=== PATIENT | female | born 1985 | race Caucasian/White ===

== ENCOUNTER 2022-03-04 19:40 | Emergency (ER) | payer OTHER, SELFPAY ==
[2022-03-04 19:49] VITALS: BP 130/86; PULSE 83; RESP 20; TEMP 36.9; O2SAT 99; BMI 35.4
[2022-03-04 19:58] VITALS: BP 130/86; PULSE 83; RESP 20; TEMP 36.9; O2SAT 99; BMI 35.4
--- NOTE | 2022-03-04 20:19 | CRLHL7_ITS ---
For Patients: As a result of the Cures Act, medical imaging exams and procedure reports are released immediately into your electronic medical record. You may view this report before your referring provider. If you have questions, please contact your health care provider. INDICATION: Cough. TECHNIQUE: Chest 1 view. COMPARISON: Chest radiograph 01/04/2021. FINDINGS: No focal consolidation, pleural effusion, or pneumothorax. Normal heart size and pulmonary vascularity. Stable prominence of the 1st rib costochondral junction. The bones are otherwise unremarkable. IMPRESSION: No acute cardiopulmonary findings. Dictated by Diamond Castelan MD @ 03/04/2022 8:45:47 PM (Electronically Signed)
--- NOTE | 2022-03-04 20:33 | ED_ITS ---
HPI - General Adult General Chief complaint: Cough Stated complaint: Cov+, painful cough Time Seen by Provider: 03/04/22 20:11 History of Present Illness HPI narrative: Pt is a 37 year old woman with a history of asthma who comes in with several days of cough. Her tested positive for covid 7 days ago and is recovering. No fever or chills. Cough is non-productive. No chest pain, leg swelling, change in bowel or bladder. No hemoptysis. Pt has been taking her albuterol at home with some effect. No other sick contacts or significant symptoms. Related Data Home Medications Medication Instructions Recorded Confirmed albuterol sulfate 90 mcg/actuation 2 puff inhalation Q4H PRN 03/04/22 03/04/22 aerosol inhaler (Ventolin HFA) escitalopram oxalate 20 mg tablet 20 mg PO DAILY 03/04/22 03/04/22 Allergies Allergy/AdvReac Type Severity Reaction Status Date / Time cat dander Allergy Mild Sneezing Verified 03/04/22 20:04 dog dander Allergy Mild Sneezing Verified 03/04/22 20:04 pollen extracts Allergy Mild Stuffy Nose Verified 03/04/22 20:04 Review of Systems Status of ROS: Reports: 10 or more systems reviewed and unremarkable except as noted in History and below [facility] Medical History ADD (attention deficit disorder) Arrest of dilation, delivered, current hospitalization Asthma Controlled substance agreement signed Depression with anxiety Gestational hypertension History of chicken pox History of dysmenorrhea History of ovarian cyst History of shingles SPENCER (obstructive sleep apnea) PMDD (premenstrual dysphoric disorder) Sinus problem Social phobia Surgical History History of wisdom tooth extraction S/P section Status post laparoscopic hysterectomy Social History Smoking Status: Former smoker Do you use any of these nicotine containing products: None Second hand tobacco smoke exposure: No How often do you have a drink containing alcohol: never How often do you have six or more drinks on one occasion: Never AUDIT-C Alcohol total score: 0 Non-prescribed substance use: denies use Exam Narrative: Exam Narrative: EXAM GENERAL: Patient appears comfortable and well. EYES: No scleral icterus. THYROID: no thyroid nodules or thyromegaly. LYMPH: No supraclavicular or cervical lymphadenopathy. SKIN: Visible skin seen during exam normal or with benign process only. EXT: No dependent lower extremity pedal edema. HEART: Regular rate and rhythm with no murmurs, rubs, or gallops. LUNGS: Clear to auscultation bilaterally with no crackles or wheezes. ABD: Soft, non tender, non distended. PSYCH: Good eye contact, speech is not pressured. Const: Vital Signs, click to edit/add: Vital Signs - 24 hr 03/04/22 19:58 03/04/22 19:49 Temperature 98.5 F 98.5 F Pulse Rate [Right Pulse Oximeter] 83 83 Respiratory Rate 20 20 Blood Pressure [Ri ght Upper Arm] 130/86 130/86 Pulse Oximetry 99 99 Oxygen Delivery Me thod Room Air Room Air Course Course Hospital Course: Pt seen and examined. Chest x ray negative upon my review. COVID swab collected. Vital Signs Vital signs: Initial Vital Signs Temperature 98.5 F 03/04/22 19:49 Temperature Source Temporal Artery Scan 03/04/22 19:49 Pulse Rate 83 03/04/22 19:49 Respiratory Rate 20 03/04/22 19:49 Blood Pressure 130/86 03/04/22 19:49 Blood Pressure Mean 100 03/04/22 19:49 Blood Pressure Position Sitting 03/04/22 19:49 Pulse Oximetry 99 03/04/22 19:49 Oxygen Delivery Method 03/04/22 19:49 Vital Signs Temperature 98.5 F 03/04/22 19:49 Pulse Rate 83 03/04/22 19:49 Respiratory Rate 20 03/04/22 19:49 Blood Pressure 130/86 03/04/22 19:49 Pulse Oximetry 99 03/04/22 19:49 Oxygen Delivery Method 03/04/22 19:49 Temperature 98.5 F 03/04/22 19:58 Pulse Rate 83 03/04/22 19:58 Respiratory Rate 20 03/04/22 19:58 Blood Pressure 130/86 03/04/22 19:58 Pulse Oximetry 99 03/04/22 19:58 Oxygen Delivery Method 03/04/22 19:58 Medical Decision Making MDM Narrative Medical decision making narrative: Pt is a 37 year old woman with a history of asthma and COVID exposure who presents with cough of several days duration. Pt has no other symptoms. Chest x ray negative upon my review. COVID testing pending. Vitals stable with oxygen saturation 99% on room air. We will release her and contact her with her COVID results. Differential Diagnosis Differential Diagnosis: COVID, Pneuomonia, Bronchitis, Asthma, URI Discharge Plan Discharge Clinical Impression: Cough Condition: Stable Instructions: Acute Cough (ED) Activity Level: No Restrictions Discharge Diet: Regular Prescriptions: No Action albuterol sulfate [Ventolin HFA] 90 mcg/actuation HFA aerosol inhaler 2 puff INHALATION Q4H PRN Label Comments: INHALE TWO PUFFS BY MOUTH EVERY 4 HOURS NEEDED escitalopram oxalate 20 mg tablet 20 mg PO DAILY Label Comments: TAKE 1 TABLET BY MOUTH EVERY DAY Follow Up/Referrals: Provider,Not a Local [Primary Care Provider] - Stand Alone Forms: [employer] Info Instructions
--- OUTSIDE RECORDS SUMMARY | 2022-03-04 20:35 | XMS_ITS | Encounter Summary ---
:1985 Author Organization Sells Address [address] [place] [address] Care Team Providers Name Role Phone Gricel Lara MD Unavailable No Ref-Primary, Physician Primary Care Provider [phone] Reason for Visit Reason Comments Altered Mental Status Vomiting Encounter Details Date Type Department Care Team Description 01/28/2021 Emergency [facility] Kiran Lara MD Altered mental status, unspecified alter ed mental status type; [facility] Emergency Dep t [facility] Synthetic cannabinoid abuse (H); [address] [place], [place] [address] [employer] [id number] [place] [address] [place] [address] (Wo rk) Social History Tobacco Use Types Packs/Day Years Used Date Former Smoker Cigarettes 0.5 Quit: 08/19/19 12 Smokeless Tobacco: Never Used Qu it: 05/03/2011 Alcohol Use Standard Drinks/Week Comments No 0 (1 standard drink = 0.6 oz pure alcoho l) not currently Alcohol Habits Answer Date Recorded How often do you have a drink containing alcohol? Not asked How many drinks containing alcohol do you have on a Not aske d typical day when you are drinking? How often do you have six or more drinks on one occasion? No t asked Comment: not currently 08/02/2011 Sex Assigned at Date Recorded Not on file COVID-19 Exposure Response Date Recorded In the last month, have you been in contact with No / Unsure 01/28/2021 6:55 PM CDT someone who was confirmed or suspected to have Coronavirus / COVID-19? documented as of this encounter Last Filed Vital Signs Vital Sign Reading Time Taken Comments Blood Pressure 130/95 01/28/2021 10:15 PM CDT Pulse 73 01/28/2021 10:15 PM CDT Temperature 36.3 ??C (97.4 ??F) 01/28/2021 6:56 PM CDT Respiratory Rate 26 01/28/2021 6:56 PM CDT Oxygen Saturation 98% 01/28/2021 10:30 PM CDT Inhaled Oxygen Concentration - - Weight - - Height - - Body Mass Index - - documented in this encounter Discharge Instructions Discharge InstructionsKiran Barrios MD - 01/28/2021 10:32 PM CDT I suspect your confusion may have been secondary to synthetic cannabinoid use. Unfortunately these products are not regulated, nor controlled and so challenging to interpret what may have been in the gummy that you ingested earlier tonight. Thankfully after a broad work-up performed in the emergency de partment including blood work, urinalysis, and CT imaging of the head no sinister etiologies were identified. After some fluids and medications your confusion has cleared and you are feeling back to normal which is reassuring. I like you to continue to stay hydrated if you develop a headache it is okay and safe to take Tylenol and/or ibuprofen. Follow-up with your primary care provider in 1 week for recheck. AttachmentsThe following attachments cannot be sent through Care Everywhere. Confusion (Taiwanese)documented in this encounter Medications at Time of Discharge Medication Sig Dispensed Refills Start Date End Date albuterol (PROVENTIL HFA: Inhale 2 puffs into 1 Inhaler 3 1 06/23/2011 VENTOLIN HFA) 108 (90 the lungs every 6 BASE) MCG/ACT hours as needed for inhalerIndications: shortness of breath / Intermittent asthma dyspnea. buPROPion (WELLBUTRIN XL) 0 06/07/2020 150 MG 24 hr tablet LORazepam (ATIVAN) 0.5 MG Take 0.5-1 tablets (0.25-0.5 mg) by mouth every 8 hours as needed for anxiety D 6 tablet 0 09/22/2015 tablet o not operate a vehicle after taking this medication Methylphenidate HCl 0 (RITALIN PO) sertraline (ZOLOFT) 50 MG Take 50 mg by mouth 0 1 tablet daily Sertraline HCl (ZOLOFT PO) Take by mouth daily 0 traZODone (DESYREL) 50 MG Take 50 mg by mouth 0 1 07/18/2019 tablet documented as of this encounter ED Notes Brandi Moreno RN - 01/28/2021 9:28 PM CDT Pt appears far less confused and agitated. Pt calm and cooperative. Vital signs stable, alert and oriented x4. Pt understands she was brought to the ER to determined why she was vomiting and confused earlier, and is still unsure what could have caused that. Brandi Moreno RN - 01/28/2021 6:45 PM CDT Pt arrives from home via EMS for altered mental status and vomiting. Pt is unsure why she is here and appears agitated and confused. Pt states she vomited several times today with a sudden onset and was unable to get off the floor after vomiting. Denies drug or alcohol use, although pt endorses using Delta 8 THC gummies at regular dosages, as well as various herbs and vitamins. Denies headache or abdominal pain. VSS. Drowsy and oriented to self only. Melida Umaña RN - 01/28/2021 6:31 PM CDT Bed: ED04 Expected date: 01/28/21 Expected time: 6:13 PM Means of arrival: Ambulance Comments: [id number] Kiran Barrios MD - 01/28/2021 6:31 PM CDT History Chief Complaint: Altered Mental Status and Vomiting The history is limited by the condition of the patient. Deyanira Pitt is a 35 year old female with history of Attention deficient hyperactive disorder and anxiety who presents with Altered Mental Status and Vomiting. Vomiting began today, but she does not know why. She called the ambulance. She takes over the counter herbs, to help treat her fibroids. Also, she mentions she took a 'Delta-8' THC gummy earlier this afternoon before the episode. Denies chest pain, shortness of breath, abdominal pain, dysuria, frequency, and back pain. Her period ended a few days ago and she is not concerned of possible . She no longer takes control. Review of Systems Unable to perform ROS: Mental status change Gastrointestinal: Positive for vomiting. Psychiatric/Behavioral: Altered Mental Status Allergies: Bupropion Prednisone Medications: Albuterol Bupropion Lorazepam Methylphenidate Sertraline Trazodone Citalopram Adderall Past Medical History: Attention deficient hyperactive disorder Anxiety Deliberate self cutting Depressive disorder Polycystic ovarian syndrome Asthma Tobacco abuse Obesity Social phobia Adjustment disorder with mixed anxiety and depressed mood Benign neoplasm of skin Social History: Denies alcohol use within the past 24 hours. She is . Physical Exam Patient Vitals for the past 24 hrs: BP Temp Temp src Pulse Resp SpO2 01/28/21 2230 -- -- -- -- -- 98 % 01/28/21 2200 125/83 -- -- 66 -- 99 % 01/28/21 2115 119/79 -- -- 72 -- 100 % 01/28/212099 -- -- -- -- -- 97 % 01/28/21 2045 122/68 -- -- 72 -- 100 % 01/28/212029 119/69 -- -- 68 -- 98 % 01/28/211999 -- -- -- 78 -- 99 % 01/28/21 1930 -- -- -- -- -- 96 % 01/28/21 1900 -- -- -- -- -- 98 % 01/28/21 1856 129/83 97.4 ??F (36.3 ??C) Oral 76 26 100 % Physical Exam General: Confused, disoriented, appears well-developed and well-nourished. Cooperative. In mild distress HEENT: Head: Atraumatic Ears: External ears are normal Mouth/Throat: Oropharynx is without erythema or exudate and mucous membranes are dry. Eyes: Conjunctivae normal and EOM are normal. No scleral icterus. Pupils are equal, round, and reactive to light. CV: Normal rate, regular rhythm, normal heart sounds and radial pulses are 2+ and symmetric. No murmur. Resp: Breath sounds are clear bilaterally Non-labored, no retractions or accessory muscle use GI: Abdomen is soft, no distension, no tenderness. No rebound or guarding. No CVA tenderness bilaterally MS: Normal range of motion. No edema. Normal strength in all 4 extremities. Back atraumatic. No midline cervical, thoracic, or lumbar tenderness Skin: Warm and dry. No rash or lesions noted. Neuro: Confused. Normal strength. Sensation intact in all 4 extremities. GCS: 14 Psych: Tearful. Labile mood. Denies SI/HI, but has paranoid behaviors. States has been trying to poison her. Emergency Department Course ECG: ECG taken at 1917, ECG read at 1927 Normal sinus rhythm Normal ECG No significant change when compared to EKG dated 09/22/15. Rate 76 bpm. IN interval 160 ms. QRS duration 86 ms. QT/QTc 404/454 ms. P-R-T axes 49 73 38. Imaging: CT Head w/o Contrast IMPRESSION: 1. No definite acute intracranial pathology, brain without definite CT abnormality. Reading per radiology Laboratory: CBC: WBC 7.3, HGB 11.5 (L) , PLT 221 CMP: Glucose 107 (H) Creatinine 0.87 o/w WNL HCG qualitative : Negative Lipase: 92 TSH with free T4 reflex: 1.27 Ethyl Alcohol Level:<0.01 Acetaminophen level: <2 (L) Ammonia (on ice) : <10 (L) Salicylate level: <2 UA with microscopic: ketones trace, bacteria few, mucus present o/w WNL Drug abuse screen 1 urine: Cannabinoids positive o/w all negative Emergency Department Course: Reviewed: I reviewed nursing notes, vitals, past medical history and care everywhere Assessments: 1851 I obtained history and examined the patient as noted above. 1899 I spoke on the phone with Chance, her spouse. 2129 I rechecked the patient. She looks better and wants to go home. Interventions: 1935 Zofran 4 mg IV 1936 Ativan 1 mg IV 1936 NS, 1 L, IV Disposition: The patient was discharged to home. Impression & Plan [facility] Diagnoses: None Medical Decision Making: Deyanira Pitt is a 35 year old female who presents for evaluation of altered mental status/confusion after ingesting a synthetic cannabinoid gummy earlier this evening. She looks impaired here on initial exam and during course in ED the mental status has fully improved/resolved. A broad differential was considered including infection, metabolic derangement, electrolyte abnormality (hyponatremia, etc), hypotension or shock, CVA, intracranial hemorrage or tumor, thyroid abnormality. The most likelyetiology of the altered mental state is synthetic cannabinoid gummy ingestion. Thankfully with a negative CT imaging, unremarkable blood work, and urine drug screen positive for cannabinoids low concern for other sinister etiologies as a cause of the patient's confusion and altered mentation this evening. She is fully cleared think safe for further outpatient follow-up with her primary care provider.Interventions in the emergency department included IV fluids and a single dose of Ativan. Just receiv ed antiemetics on arrival. Detailed physical exam for occult sources of infection does not demonstrate any hidden infections like perirectal abscess or cellulitis, cellulitis, open wounds, etc. I rechecked the patient at bedside before discharge and she felt improved. She denied any suicidal or homicidal thoughts. She denied depression or other concerning mental health features requiring further mental health (DEC) assessment this evening. Follow-up with her primary care provider in 1 week for recheck. After all questions answered and return precautions understood, discharged home. Diagnosis: ICD-10-CM 1. Altered mental status, unspecified altered mental status type R41.82 2. Synthetic cannabinoid abuse (H) F19.10 3. Confusion R41.0 Discharge Medications: New Prescriptions No medications on file Scribe Disclosure: Dontrell Delma Brady, am serving as a scribe at 6:58 PM on 01/28/2021 to document services personally performed by Kiran Barrios MD based on my observations and the provider's statements to me. Kiran Barrios MD 01/28/21 9310 documented in this encounter Plan of Treatment Not on filedocumented as of this encounter Procedures Procedure Name Priority Date/Time Associated Comments Diagnosis CT HEAD W/O CONTRAST STAT 01/28/2021 9:45 PM R esults for this CDT procedure are i n the results section. URINE DRUGS OF ABUSE STAT 01/28/2021 9:06 PM R esults for this SCREEN CDT procedure are i n the results section. ROUTINE UA WITH STAT 01/28/2021 9:06 PM Result s for this MICROSCOPIC REFLEX TO CDT proced ure are in CULTURE the results section. DRUG ABUSE SCREEN 1 STAT 01/28/2021 9:06 PM Re sults for this URINE (ED) CDT procedure are i n the results section. CBC WITH PLATELETS AND STAT 01/28/2021 7:34 PM Results for this DIFFERENTIAL CDT procedure are i n the results section. CBC WITH PLATELETS & STAT 01/28/2021 7:34 PM R esults for this DIFFERENTIAL CDT procedure are i n the results section. TSH WITH FREE T4 STAT 01/28/2021 7:34 PM Resul ts for this REFLEX CDT procedure are i n the results section. SALICYLATE LEVEL STAT 01/28/2021 7:34 PM Resul ts for this CDT procedure are i n the results section. LIPASE STAT 01/28/2021 7:34 PM Results f or this CDT procedure are i n the results section. HCG QUALITATIVE STAT 01/28/2021 7:34 PM Result s for this CDT procedure are i n the results section. COMPREHENSIVE STAT 01/28/2021 7:34 PM Results for this METABOLIC PANEL CDT procedure ar e in the results section. AMMONIA STAT 01/28/2021 7:34 PM Results f or this CDT procedure are i n the results section. ETHYL ALCOHOL LEVEL STAT 01/28/2021 7:34 PM Re sults for this CDT procedure are i n the results section. ACETAMINOPHEN LEVEL STAT 01/28/2021 7:34 PM Re sults for this CDT procedure are i n the results section. EKG 12-LEAD, TRACING STAT 01/28/2021 7:18 PM R esults for this ONLY CDT procedure are i n the results section. documented in this encounter Results CT Head w/o Contrast (01/28/2021 9:45 PM CDT) Anatomical Region Laterality Modality Head, SUBRAD CT NEURO, SUBRAD CT NEURO, UMP CT NEURO, Computed Tomography RAD CT Specimen (Source) Anatomical Collection Method Collection Time Re ceived Time Location / / Volume Laterality 01/28/2021 9:27 PM CDT Impressions 01/28/2021 10:01 PM CDT IMPRESSION: 1. ??No definite acute intracranial path ology, brain without definite CT abnormality. Narrative 01/28/2021 10:01 PM CDT EXAM: CT HEAD W/O CONTRAST LOCATION: [facility] [place] DATE/TIME: 01/28/2021 9:27 PM INDICATION: Mental status change, confus ion. COMPARISON: 08/01/[address] TECHNIQUE: Routine CT Head without IV co ntrast. Multiplanar reformats. Dose reduction techniques were used. FINDINGS: INTRACRANIAL CONTENTS: Study evaluation partially limited by motion and streak artifact. No definite intracranial hemorrhage, extraaxial collection, mass or mass effect. ??No convincing CT evidence of a cute infarct. Brain parenchymal attenuat ion pattern within normal limits given motion artifa ct. Normal ventricles and sulci. Cerebellar tonsils within normal limits. Possible empty sella, not well visualized. VISUALIZED ORBITS/SINUSES/MASTOIDS: No i ntraorbital abnormality. No paranasal sinus mucosal disease. No middle ear or mastoid effusion. BONES/SOFT TISSUES: No acute abnormality . Procedure Note Mohan Wynne MD - 1 EXAM: CT HEAD W/O CONTRAST LOCATION: [facility] [place] DATE/TIME: 01/28/2021 9:27 PM INDICATION: Mental status change, confus ion. COMPARISON: 08/01/[address] TECHNIQUE: Routine CT Head without IV co ntrast. Multiplanar reformats. Dose reduction techniques were used. FINDINGS: INTRACRANIAL CONTENTS: Study evaluation partially limited by motion and streak artifact. No definite intracranial hemorrhage, extraaxial collection, mass or mass effect. No convincing CT evidence of acute infarct. Brain parenchymal attenuation p attern within normal limits given motion artifa ct. Normal ventricles and sulci. Cerebellar tonsils within normal limits. Possible empty sella, not well visualized. VISUALIZED ORBITS/SINUSES/MASTOIDS: No i ntraorbital abnormality. No paranasal sinus mucosal disease. No middle ear or mastoid effusion. BONES/SOFT TISSUES: No acute abnormality . IMPRESSION: 1. No definite acute intracranial pathol ogy, brain without definite CT abnormality. Kiran Barrios MD IMG CT ORDERABLES (ABNORMAL) Drug abuse screen 1 urine (ED) (01/28/2021 9:06 PM CDT) [facility] Method Time Signature Amphetamines Screen Screen 01/28/2021 LABORATORY Urine Negative Negative 10:09 PM CDT Comment: Cutoff for a negative amphetami ne is 500 ng/mL or less. Barbiturates Urine Screen Negative Screen Negative 10:09 LABORATORY PM CDT Comment: Cutoff for a negative barbitura te is 200 ng/mL or less. Benzodiazepines Urine Screen Negative Screen 01/28/2021 1 0:09 [facility] LABORATORY Negative PM CDT Comment: Cutoff for a negative benzodiaz epine is 200 ng/mL or less. Cannabinoids Urine Screen Positive Screen Negative 10:09 LABORATORY (A) PM CDT Comment: Cutoff for a positive cannabinoid is gre ater than 50 ng/mL. This is an unconfirmed screening result to be used for medical purposes only. Cocaine Urine Screen Negative Screen Negative 01/28/2021 1 0:09 PM LABORATORY CDT Comment: Cutoff for a negative cocaine i s 300 ng/mL or less. Opiates Urine Screen Negative Screen Negative 01/28/2021 1 0:09 PM LABORATORY CDT Comment: Cutoff for a negative opiate is 300 ng/mL or less. Specimen Anatomical Collection Method Collection Time Receive d Time (Source) Location / / Volume Laterality Urine MID-STREAM URINE Non-blood 01/28/2021 9:06 PM 01/28 9:17 SPECIMEN / Unknown Collection / CDT PM CDT Unknown Kiran Barrios MD LAB - URINE ORDERABLES Performing Organization Address City/State/ZIP Code [place] [id number] Care [facility] [address] Lab (1st floor, no room number) (ABNORMAL) UA with Microscopic reflex to Culture (01/28/2021 9:06 PM CDT) [facility] Method Time Signature Color Urine Light Colorless, 01/28/2021 LABORATORY Yellow Straw, 9:30 PM CDT Light Yellow, Yellow Appearance Urine Clear Clear 01/28/2021 LABORATOR Y 9:30 PM CDT Glucose Urine Negative Negative 01/28/2021 LABORATORY mg/dL 9:30 PM CDT Bilirubin Urine Negative Negative 01/28/2021 LABORATORY 9:30 PM CDT Ketones Urine Trace (A) Negative 01/28/2021 LABORATORY mg/dL 9:30 PM CDT Specific [place] 1.011 1.003 - 01/28/2021 [facility] LABORATOR Y Urine 1.035 9:30 PM CDT Blood Urine Negative Negative 01/28/2021 LABORATORY 9:30 PM CDT pH Urine 6.5 5.0 - 7.0 01/28/2021 [facility] LABORATORY 9:30 PM CDT Protein Albumin Negative Negative 01/28/2021 LABORATORY Urine mg/dL 9:30 PM CDT Urobilinogen Normal Normal, 2.0 01/28/2021 LABORATORY Urine mg/dL 9:30 PM CDT Nitrite Urine Negative Negative 01/28/2021 LABORATORY 9:30 PM CDT Leukocyte Negative Negative 01/28/2021 LABORATORY Esterase Urine 9:30 PM CDT Bacteria Urine Few (A) None Seen 01/28/2021 LABORATORY /HPF 9:30 PM CDT Mucus Urine Present (A) None Seen 01/28/2021 LABORATORY /LPF 9:30 PM CDT RBC Urine <1 <=2 /HPF 01/28/2021 LABORATORY 9:30 PM CDT WBC Urine 1 <=5 /HPF 01/28/2021 [facility] LABORATORY 9:30 PM CDT Squamous 1 <=1 /HPF 01/28/2021 LABORATORY Epithelials 9:30 PM CDT Urine Specimen Anatomical Collection Method Collection Time Receive d Time (Source) Location / / Volume Laterality Urine MID-STREAM URINE Non-blood 01/28/2021 9:06 PM 01/28 9:16 SPECIMEN / Unknown Collection / CDT PM CDT Unknown Narrative [facility] - 01/28/2021 9:30 PM CDT Urine Culture not indicated Kiran Barrios MD LAB - URINE ORDERABLES Performing Organization Address City/State/ZIP Code [place] [address] [facility] [address] Lab (1st floor, no room number) (ABNORMAL) CBC with platelets and differential (01/28/2021 7:34 PM CDT) [facility] Method Time Signature WBC Count 7.3 4.0 - 01/28/2021 [facility] LABORATORY 11.0 7:41 PM CDT 10e3/uL RBC Count 4.10 3.80 - 01/28/2021 [facility] LABORATORY 5.20 7:41 PM CDT 10e6/uL Hemoglobin 11.5 (L) 11.7 - 01/28/2021 [facility] LABORATORY 15.7 g/dL 7:41 PM CDT Hematocrit 34.7 (L) 35.0 - 01/28/2021 [facility] LABORATORY 47.0 % 7:41 PM CDT MCV 85 78 - 100 01/28/2021 [facility]AT[facility] fL 7:41 PM CDT MCH 28.0 26.5 - 01/28/2021 [facility]ORAT[facility] 33.0 pg 7:41 PM CDT MCHC 33.1 31.5 - 01/28/2021 [facility]AT[facility] 36.5 g/dL 7:41 PM CDT RDW 14.0 10.0 - 01/28/2021 [facility]ORAT[facility] 15.0 % 7:41 PM CDT Platelet Count 221 150 - 450 01/28/2021 [facility] LABORATORY 10e3/uL 7:41 PM CDT % Neutrophils 74 % 01/28/2021 [facility] 7:41 PM CDT % Lymphocytes 17 % 01/28/2021 [facility] 7:41 PM CDT % Monocytes 7 % 01/28/2021 [facility] 7:41 PM CDT % Eosinophils 2 % 01/28/2021 [facility] 7:41 PM CDT % Basophils 0 % 01/28/2021 [facility] 7:41 PM CDT % Immature 0 % 01/28/2021 [facility] Granulocytes 7:41 PM CDT NRBCs per 100 0 <1 /100 01/28/2021 [facility] WBC 7:41 PM CDT Absolute 5.4 1.6 - 8.3 01/28/2021 [facility] Neutrophils 10e3/uL 7:41 PM CDT Absolute 1.2 0.8 - 5.3 01/28/2021 [facility] Lymphocytes 10e3/uL 7:41 PM CDT Absolute 0.5 0.0 - 1.3 01/28/2021 [facility]AT[facility] Monocytes 10e3/uL 7:41 PM CDT Absolute 0.1 0.0 - 0.7 01/28/2021 [facility] Eosinophils 10e3/uL 7:41 PM CDT Absolute 0.0 0.0 - 0.2 01/28/2021 [facility]AT[facility] Basophils 10e3/uL 7:41 PM CDT Absolute 0.0 <=0.0 01/28/2021 [facility] LABORAT[facility] Immature 10e3/uL 7:41 PM CDT Granulocytes Absolute NRBCs 0.0 10e3/uL 01/28/2021 [facility] LAB[facility]AT[facility] 7:41 PM CDT Specimen Anatomical Collection Method / Collection Time Recei vidal Time (Source) Location / Volume Laterality Blood STRUCTURE OF LEFT Venipuncture / 01/28/2021 7:34 01/28 7:37 UPPER LIMB / Unknown PM CDT PM CDT Unknown Kiran Barrios MD LAB - BLOOD ORDERABLES Performing Organization Address City/[facility]/ZIP Code [place] [address] Care [facility] [address] Lab (1st floor, no room number) Salicylate level (01/28/2021 7:34 PM CDT) athologist Signature Salicylate <2 <20 mg/dL 01/28/2021 8:02 [facility] LABORATORY PM CDT Comment: Salicylate Reference Range Therapeutic: ? <20 Anti inflammatory: 15-30 Specimen Anatomical Collection Method / Collection Time Recei vidal Time (Source) Location / Volume Laterality Blood STRUCTURE OF LEFT Venipuncture / 01/28/2021 7:34 01/28 7:37 UPPER LIMB / Unknown PM CDT PM CDT Unknown Kiran Barrios MD LAB - BLOOD ORDERABLES Performing Organization Address City/[facility]/ZIP Code [place] [address] Care [facility] [address] Lab (1st floor, no room number) (ABNORMAL) Ammonia (on ice) (01/28/2021 7:34 PM CDT) P athologist Signature Ammonia <10 (L) 10 - 50 01/28/2021 [facility] LABORATORY umol/L 8:11 PM CDT Specimen Anatomical Collection Method / Collection Time Recei vidal Time (Source) Location / Volume Laterality Blood STRUCTURE OF LEFT Venipuncture / 01/28/2021 7:34 01/28 7:37 UPPER LIMB / Unknown PM CDT PM CDT Unknown Kiran Barrios MD LAB - BLOOD ORDERABLES Performing Organization Address City/[facility]/[place] [address] Care Lab [address] Lab (1st floor, no room number) (ABNORMAL) Acetaminophen level (01/28/2021 7:34 PM CDT) athologist Signature Acetaminophen <2 (L) 10 - 30 01/28/2021 [facility] LABORATORY mg/L 8:27 PM CDT Comment: Therapeutic range: 10-30 mg/L Specimen Anatomical Collection Method / Collection Time Recei vidal Time (Source) Location / Volume Laterality Blood STRUCTURE OF LEFT Venipuncture / 01/28/2021 7:34 01/28 7:37 UPPER LIMB / Unknown PM CDT PM CDT Unknown Kiran Barrios MD LAB - BLOOD ORDERABLES Performing Organization Address City/[facility]/[place] [address] Care Lab [address] Lab (1st floor, no room number) Ethyl Alcohol Level (01/28/2021 7:34 PM CDT) athologist Signature Alcohol ethyl <0.01 <=0.01 g/dL 01/28/2021 [facility] LABORATORY 8:01 PM CDT Specimen Anatomical Collection Method / Collection Time Recei vidal Time (Source) Location / Volume Laterality Blood STRUCTURE OF LEFT Venipuncture / 01/28/2021 7:34 01/28 7:37 UPPER LIMB / Unknown PM CDT PM CDT Unknown Kiran Barrios MD LAB - BLOOD ORDERABLES Performing Organization Address City/[facility]/[place] [address] Care Lab [address] Lab (1st floor, no room number) TSH with free T4 reflex (01/28/2021 7:34 PM CDT) P athologist Signature TSH 1.27 0.40 - 4.00 01/28/2021 [facility] LAB[facility]ATORY mU/L 8:09 PM CDT Specimen Anatomical Collection Method / Collection Time Recei vidal Time (Source) Location / Volume Laterality Blood STRUCTURE OF LEFT Venipuncture / 01/28/2021 7:34 01/28 7:37 UPPER LIMB / Unknown PM CDT PM CDT Unknown Kiran Barrios MD LAB - BLOOD ORDERABLES Performing Organization Address City/State/ZIP Code [place] [address] Care [facility] [address] Lab (1st floor, no room number) Lipase (01/28/2021 7:34 PM CDT) athologist Signature Lipase 92 73 - 393 U/L 01/28/2021 [facility] LABORATORY 8:01 PM CDT Specimen Anatomical Collection Method / Collection Time Recei vidal Time (Source) Location / Volume Laterality Blood STRUCTURE OF LEFT Venipuncture / 01/28/2021 7:34 01/28 7:37 UPPER LIMB / Unknown PM CDT PM CDT Unknown Kiran Barrios MD LAB - BLOOD ORDERABLES Performing Organization Address City/State/ZIP Code [place] [address] Care [facility] [address] Lab (1st floor, no room number) (ABNORMAL) Comprehensive metabolic panel (01/28/2021 7:34 PM CDT) [facility] gist Method Time Signature Sodium 138 133 - 144 01/28/2021 [facility] mmol/L 8:01 PM CDT Potassium 3.6 3.4 - 5.3 01/28/2021 [facility] mmol/L 8:01 PM CDT Chloride 106 94 - 109 01/28/2021 [facility] mmol/L 8:01 PM CDT Carbon Dioxide 27 20 - 32 01/28/2021 [facility] (CO2) mmol/L 8:01 PM CDT Anion Gap 5 3 - 14 01/28/2021 [facility] mmol/L 8:01 PM CDT Urea Nitrogen 16 7 - 30 01/28/2021 LABORATORY mg/dL 8:01 PM CDT Creatinine 0.87 0.52 - 01/28/2021 LABORATORY 1.04 mg/dL 8:01 PM CDT Calcium 8.7 8.5 - 10.1 01/28/2021 LABORATORY mg/dL 8:01 PM CDT Glucose 107 (H) 70 - 99 01/28/2021 LABORATORY mg/dL 8:01 PM CDT Alkaline 62 40 - 150 01/28/2021 LABORATORY Phosphatase U/L 8:01 PM CDT AST 24 0 - 45 U/L 01/28/2021 LABORATORY 8:01 PM CDT ALT 24 0 - 50 U/L 01/28/2021 LABORATORY 8:01 PM CDT Protein Total 7.9 6.8 - 8.8 01/28/2021 LABORATORY g/dL 8:01 PM CDT Albumin 3.9 3.4 - 5.0 01/28/2021 LABORATORY g/dL 8:01 PM CDT Bilirubin Total 0.4 0.2 - 1.3 01/28/2021 LABORATORY mg/dL 8:01 PM CDT GFR Estimate 85 >60 01/28/2021 LABORATORY mL/min/1.7 8:01 PM CDT 3m2 Comment: As of December 06, 2020, eGFR is ca lculated by the CKD-EPI creatinine equation, without race adjustment. eGFR can be inf luenced by muscle mass, exercise, and diet. The reported eGFR is an estimation only and is only applicable if the renal function is stable. Specimen Anatomical Collection Method / Collection Time Recei vidal Time (Source) Location / Volume Laterality Blood STRUCTURE OF LEFT Venipuncture / 01/28/2021 7:34 01/28 7:37 UPPER LIMB / Unknown PM CDT PM CDT Unknown Kiran Barrios MD LAB - BLOOD ORDERABLES Performing Organization Address City/State/ZIP Code [place] [id number] Care Lab [address] Lab (1st floor, no room number) HCG QUALitative (blood) (01/28/2021 7:34 PM CDT) Patholo gist Method Time Signature hCG Serum Negative Negative NIURKA 01/28/2021 [facility] Qualitative 8:00 PM CDT Comment: This test is for screening purp oses. Results should be interpreted along with the clinical picture. Confirmation testing is available if warranted by ordering [id number], HCG Quantitative . Specimen Anatomical Collection Method / Collection Time Recei vidal Time (Source) Location / Volume Laterality Blood STRUCTURE OF LEFT Venipuncture / 01/28/2021 7:34 01/28 7:37 UPPER LIMB / Unknown PM CDT PM CDT Unknown Kiran Barrios MD LAB - BLOOD ORDERABLES Performing Organization Address City/State/ZIP Code [place] [address] Care [facility] [address] Lab (1st floor, no room number) EKG 12-lead, tracing only (01/28/2021 7:18 PM CDT) [facility] Method Time Signature Systolic Blood mmHg RADIOLOGY Pressure RESULTS Diastolic Blood mmHg RADIOLOGY Pressure RESULTS Ventricular Rate 76 BPM RADIOLOGY RESULTS Atrial Rate 76 BPM RADIOLOGY RESULTS IN Interval 160 ms RADIOLOGY RESULTS QRS Duration 86 ms RADIOLOGY RESULTS QT 404 ms RADIOLOGY RESULTS QTc 454 ms RADIOLOGY RESULTS P [place] 49 degrees RADIOLOGY RESULTS R AXIS 73 degrees RADIOLOGY RESULTS T [place] 38 degrees RADIOLOGY RESULTS Interpretation Sinus rhythm RADIOLOGY ECG Normal ECG RESULTS No previous ECGs available Confirmed by - EMERGENCY NORA Lakhani, PHYSICIAN ([id number]), editorial manager BRADLEY REYNOLDS ([id number]) on 01/29/2021 6:55:57 AM Specimen Anatomical Collection Method Collection Time Receive d Time (Source) Location / / Volume Laterality 01/28/2021 7:18 PM 6:55 CDT AM CDT Kiran Barrios MD ECG ORDERABLES Performing Organization Address City/State/ZIP Code Phon e Number RADIOLOGY RESULTS documented in this encounter Visit Diagnoses Diagnosis Altered mental status, unspecified alter ed mental status type Synthetic cannabinoid abuse (H) Confusion Unspecified psychosis documented in this encounter Administered Medications Inactive Administered Medications - up to 3 most recent administrations Medication Order MAR Action Action Date Dose Rate Site 0.9% sodium chloride BOLUS New Bag 01/28/2021 7:37 PM CDT 1,000 mLs 2000 mL/hr Intravenous, 1,000 mL, ONCE, at 2,000 mL/hr, Administer over 30 Minutes, On [place] 9/2/21 at 1905, For 1 dose LORazepam (ATIVAN) injection 1 mg Given 01/28/2021 7:37 PM CDT 1 mg 1 mg, Intravenous, EVERY 30 MIN PRN, anxiety, agitation, aggression, Starting on [place] 01/28/21 at 1856, For 2 doses, This drug may cause significant respiratory depression. Monitor respiratory status and vital signs carefully for 1 hour after each dose. ondansetron (ZOFRAN) injection 4 mg Given 01/28/2021 7:36 PM CDT 4 mg 4 mg, Intravenous, ONCE, Administer over 2-5 Minutes, On [place] 01/28/21 at 1905, For 1 dose, Irritant. For ordered IV doses 0.1-4 mg, give IV Push undiluted over 2-5 minutes. documented in this encounter Active and Recently Administered Medications Times are shown in CDT. Scheduled Medication Order 01/26/2021 01/27/2021 01/28/2021 0.9% sodium chloride BOLUS (COMPLETED) 1936 (New Bag - Provider: Brandi Moreno RN)2103 (Stopped - Provider: Brandi Moreno, RN) Intravenous, 1,000 mL, ONCE, at 2,000 mL /hr, Administer over 30 Minutes, On [place] 01/28/21 at 1905, For 1 dose ondansetron (ZOFRAN) injection 4 mg (COMPLETED) 1935 (Given - Provider: Brandi Moreno, ROXANA) 4 mg, Intravenous, ONCE, Administer over 2-5 Minutes, On [place] 01/28/21 at 1905, For 1 dose, Irritant. For ordered IV doses 0.1-4 mg, give IV Push undiluted over 2-5 minutes. PRN Medication Order 01/26/2021 01/27/2021 01/28/2021 LORazepam (ATIVAN) injection 1 mg 1936 (Given - Provider: Brandi Moreno, ROXANA) 1 mg, Intravenous, EVERY 30 MIN PRN, anx iety, agitation, aggression, Starting on [place] 01/28/21 at 1856, For 2 doses, This drug may cause significant respiratory depression. Monitor respiratory status and vital signs carefully for 1 hour after each dose. documented in this encounter Care Teams Blow Mold Technician Relationship Specialty Start Date End Date No Ref-Primary, Physician PCP - General 06/07/20 Gricel Lara MD Family Practice 09/22/15 [facility] [address] [place] [address] documented as of this encounter
--- OUTSIDE RECORDS SUMMARY | 2022-03-04 20:35 | XMS_ITS | Encounter Summary ---
:1985 Author Organization [place] Address [address] [place] [address]. [place] [address] Care Team Providers Name Role Phone Kiran Cornelius MD Primary Care Provider [phone] Kiran Cornelius MD Unavailable Reason for Visit Reason Comments Recheck Medication Would like to d/c Virgilio Encounter Details Date Type Department Care Team Description 05/07/2012 Office Visit [facility] Kiran Cornelius ADHD (att ention deficit Clinic Mechelle Landin MD hyperactivity disorder) [place] [address] [facility] [address], [address] [place] [phone] Social History Tobacco Use Types Packs/Day Years Used Date Former Smoker Quit: 08/19/19 12 Smokeless Tobacco: Former User Q uit: 05/03/2011 Alcohol Use Standard Drinks/Week Comments No [...] Assigned at Date Recorded Not on file documented as of this encounter Last Filed Vital Signs Vital Sign Reading Time Taken Comments Blood Pressure 124/84 05/07/2012 7:29 AM ACREAGE REPORTER Pulse 84 05/07/2012 7:29 AM ACREAGE REPORTER Temperature 36.3 ??C (97.4 ??F) 05/07/2012 7:29 AM ACREAGE REPORTER Respiratory Rate - - Oxygen Saturation 97% 05/07/2012 7:29 AM ACREAGE REPORTER Inhaled Oxygen Concentration - - Weight 109.8 kg (242 lb) 05/07/2012 7:29 AM ACREAGE REPORTER Height 175.3 cm (5' 9) 05/07/2012 7:29 AM ACREAGE REPORTER Body Mass Index 35.74 05/07/2012 7:29 AM ACREAGE REPORTER documented in this encounter Progress Notes Kiran Cornelius MD - 05/07/2012 7:54 AM CST HPI Jaquan seems to be working, but having lots of abdominal pains, and noted last period was crampier than normal. Feels thinking is more focused, less clutter in my head. For stimulants has been on adderall, both long acting and short acting. Find that she can tolerate stims for a while, but fairlyquickly side effects become problematic. Concerned about logistics and finances with counseling. Review of Systems Constitutional: Negative. Psychiatric/Behavioral: Negative for depression and substance abuse. The patient is nervous/anxious. Physical Exam Vitals reviewed. Constitutional: She is oriented to person, place, and time and well-developed, well-nourished, and in no distress. Neurological: She is alert and oriented to person, place, and time. Psychiatric: Mood and affect normal. ADHD (attention deficit hyperactivity disorder) (primary encounter diagnosis) Comment: will give trial - may need PA. Advised to take break on weekends or when not needed/ Plan: methylphenidate (CONCERTA) 18 MG CR tablet Greater than 50% of this 15 minute visit spent in counseling and coordination of care. Topics discussed included: med adjustment, follow-up planning RTC in 2w Kiran Cornelius MD AGE REPORTER documented in this encounter Nursing Notes 05/07/2012 7:15 AM CST >> LIVE PAREKH Mon May 07, 2012 7:31 AM Patient presents with: Recheck Medication - Would like to d/c Virgilio Initial BP 124/84 Pulse 84 Temp(Src) 97.4 ??F (36.3 ??C) (Oral) Ht 5' 9 (1.753 m) Wt 242 lb(109.77 kg) BMI 35.74 kg/m2 SpO2 97% LMP 04/02/2012 Estimated Body mass index is 35.74 kg/(m^2) as calculated from the following: Height as of this encounter: 5' 9(1.753 m). Weight as of this encounter: 242 lb(109.77 kg).. BP completed using cuff size: alysha Parekh RN documented in this encounter Plan of Treatment Not on filedocumented as of this encounter Visit Diagnoses Diagnosis ADHD (attention deficit hyperactivity di sorder) - Primary Attention deficit disorder with hyperact ivity documented in this encounter Care Teams Loaders Relationship Specialty Start Date End Date Kiran Cornelius MD PCP - General Family Practice 10/03/11 09/21/15 Kiran Cornelius MD Family Practice 10/03/11 09/21/15 documented as of this encounter
--- OUTSIDE RECORDS SUMMARY | 2022-03-04 20:35 | XMS_ITS | Encounter Summary ---
:1985 Author Organization [place] Address [address] [place] [address] Care Team Providers Name Role Phone Kiran Cornelius MD Primary Care Provider [phone] Kiran Cornelius MD Unavailable Reason for Visit Reason Onset Date Comments Medication Change 04/18/2012 pt stopped cymbalta & tenex Encounter Details Date Type Department Care Team Description [facility] n Change (pt Clinic Mechelle Landin MD stopped cymbalta & [address] [facility], [address] [place] [address].. [address] [place] [address] [place], [place] [phone] (Wo rk) [address] [phone] Social History Tobacco Use Types Packs/Day Years [...] on file documented as of this encounter Miscellaneous Notes Telephone Encounter - Stefani Garza - 04/18/2012 3:27 PM CST Discontinued tenex and cymbalta, see below. OL LABORATORY TECHNICIAN Telephone Encounter - Stefani Garza - 04/18/2012 3:26 PM SCHOOL LABORATORY TECHNICIAN Message from [facility]: Original authorizing provider: Kiran Cornelius MD, MD Deyanira Pitt would like a refill of the following medications: guanFACINE (TENEX) 1 MG tablet [Kiran Cornelius MD, ] DULoxetine (CYMBALTA) 20 MG capsule [Kiran Cornelius MD, ] Preferred pharmacy: [id number] [place], [place] Comment: I am no longer taking any of these medications at this time.Thank you Medication renewals requested in this message routed to other providers: citalopram (CELEXA) 20 MG tablet [Kathryn Colbert MD] OL LABORATORY TECHNICIAN documented in this encounter Plan of Treatment Not on filedocumented as of this encounter Visit Diagnoses Diagnosis ADHD (attention deficit hyperactivity di sorder) - Primary Attention deficit disorder with hyperact ivity OZZIE (generalised anxiety disorder) Generalized anxiety disorder documented in this encounter Care Teams Stock Hanger Relationship Specialty Start Date End Date Kiran Cornelius MD PCP - General Family Practice 10/03/11 09/21/15 Kiran Cornelius MD Family Practice 10/03/11 09/21/15 documented as of this encounter
--- OUTSIDE RECORDS SUMMARY | 2022-03-04 20:35 | XMS_ITS | Encounter Summary ---
:1985 Author Organization [place] Address [address] [place] [address]. [place] [address] Care Team Providers Name Role Phone Kiran Cornelius MD Primary Care Provider [phone] Gricel Lara MD Primary Care Provider Kiran Cornelius MD Unavailable Gricel Lara MD Unavailable No Ref-Primary, Physician Primary Care Provider [phone] Reason for Visit Reason Onset Date Comments Refill Request 08/02/2012 Control Encounter Details Date Type Department Care Team Description 08/02/2012 MyC Refill [facility] Kiran Cornelius Refill Re quest ( Clinic [place] MD Mushtaq Control) [address] [facility], [address] [place] [address] [place] [address] [place], [place] [phone] (Wo rk) [address] [phone] Social History Tobacco Use Types Packs/Day Years Used Date Current Every Day Smoker Duong t: 08/19/2011 Smokeless Tobacco: Former User Q uit: 05/03/2011 [...] this encounter Miscellaneous Notes Telephone Encounter - Nirali Parekh - 08/02/2012 12:11 PM CST CONTRACEPTIVES Last Office Visit R/T Diagnosis: 05/11/2012 ORAL/PATCH CONTRACEPTIVES--May also be prescribed for acne NUVARING OV: 12 mths Max refills: 12 mths Tests: annual exam MAY REFILL ONE MONTH EXTRA IF DUE FOR EXAM AND VISIT SCHEDULED MAY ALSO BE RX'd FOR ACNE [employer] Telephone Encounter - Nirali Parekh - 08/02/2012 12:11 PM [employer] Message from [facility]: Original authorizing provider: Kiran Cornelius MD, MD Deyanira Pitt would like a refill of the following medications: norethin-eth estradiol-fe (LOESTRIN 24 FE) 1-20 MG-MCG(24) TABS [Kiran Cornelius MD, MD] Preferred pharmacy: [id number] Comment: could i have 6 months worth of this? [employer] documented in this encounter Plan of Treatment Not on filedocumented as of this encounter Visit Diagnoses Diagnosis Contraception - Primary Unspecified contraceptive management documented in this encounter Care Teams Optical Scientist Relationship Specialty Start Date End Date Kiran Cornelius MD PCP - General Family Practice 10/03/11 09/21/15 Gricel Lara MD PCP - General Family Practice 09/22/15 06/06/[address] [id number] No Ref-Primary, Physician PCP - General 06/07/20 Kiran Cronelius MD Family Practice 10/03/11 09/21/15 Gricel Lara MD [facility] Practice 09/22/15 [address] [place] [address] documented as of this encounter
--- OUTSIDE RECORDS SUMMARY | 2022-03-04 20:35 | XMS_ITS | Encounter Summary ---
:1985 Author Organization [place] Address [address] [place] [address]. [place] [address] Care Team Providers Name Role Phone Kiran Cornelius MD Primary Care Provider [phone] Kiran Cornelius MD Unavailable Reason for Visit Reason Comments Depression Medication Therapy Management Previsit LM X1-04/20/12-[place]. Encounter Details Date Type Department Care Team Description 04/23/2012 Office Visit [facility] Kiran Cornelius [facility] Mechelle Landin MD ENCOUNTER--DISREGARD [place] [address] [facility] (Primary Dx) Road, [address] [place] [address] [place], [place] [phone] (Wo rk) [address] [phone] Social History Tobacco Use Types Packs/Day Years [...] on file documented as of this encounter Progress Notes Kiran Cornelius MD - 04/26/2012 6:46 AM CST Cancelled PING BUILDER documented in this encounter Plan of Treatment Not on filedocumented as of this encounter Visit Diagnoses Diagnosis ERRONEOUS ENCOUNTER--DISREGARD - Primary documented in this encounter Care Teams Covering Machine Operator Helper Relationship Specialty Start Date End Date Kiran Cornelius MD PCP - General [facility] 10/03/11 09/21/15 Kiran Cornelius MD [facility] 10/03/11 09/21/15 documented as of this encounter
--- OUTSIDE RECORDS SUMMARY | 2022-03-04 20:35 | XMS_ITS | Encounter Summary ---
:1985 Author Organization [place] Address [address] [place] [address]. [place] [address] Care Team Providers Name Role Phone Gricel Lara MD Unavailable No Ref-Primary, Physician Primary Care Provider [phone] Encounter Details Date Type Department Care Team Description 06/07/2020 Travel Social History Tobacco Use Types Packs/Day Years [...] been in contact with No / Unsure 06/07/2020 2:58 PM BARTENDER MANAGER someone who was confirmed or suspected to have Coronavirus / COVID-19? documented as of this encounter Plan of Treatment Not on filedocumented as of this encounter Visit Diagnoses Not on filedocumented in this encounter Care Teams Barrel Coater Relationship Specialty Start Date End Date No Ref-Primary, Physician PCP - General 06/07/20 Gricel Lara MD Family Practice 09/22/15 [facility] [address] [place] [address] documented as of this encounter
--- OUTSIDE RECORDS SUMMARY | 2022-03-04 20:35 | XMS_ITS | Encounter Summary ---
:1985 Author Organization [place] Address [address] [place] [address]. [place] [address] Care Team Providers Name Role Phone Kiran Cornelius MD Primary Care Provider [phone] Kiran Cornelius MD Unavailable Reason for Visit Reason Onset Date Comments Refill Request 03/20/2012 citalopram- duplicat e Encounter Details Date Type Department Care Team Description 03/20/2012 MyC Refill [facility] Kathryn Colbert Refill Request Clinic Mechelle Olmos MD (citalopram- [address] [facility], [address] [place] [address] duplicate) [address] [place] [address] [place], [place] [phone] (Wo rk) [address] [phone] Social History Tobacco Use Types Packs/Day Years [...] on file documented as of this encounter Plan of Treatment Not on filedocumented as of this encounter Visit Diagnoses Not on filedocumented in this encounter Care Teams Tariff Publishing Agent Relationship Specialty Start Date End Date Kiran Cornelius MD PCP - General Family Practice 10/03/11 09/21/15 Kiran Cornelius MD Family Practice 10/03/11 09/21/15 documented as of this encounter
--- OUTSIDE RECORDS SUMMARY | 2022-03-04 20:35 | XMS_ITS | Encounter Summary ---
:1985 Author Organization [place] Address [address] [place] [address]. [place] [address] Care Team Providers Name Role Phone Kiran Cornelius MD Primary Care Provider [phone] Kiran Cornelius MD Unavailable Reason for Visit Reason Comments Depression Anxiety Encounter Details Date Type Department Care Team Description 05/11/2012 Office Visit [facility] Ni Rollins N, Mode rate major depression (H) (Primary Dx); [facility] [place] PA-C OZZIE (generalised anxiety disorder); [address] [place] [address] Impulsiveness; [place], [place] Non com pliance w medication regimen; [id number] Family history of mood disorder; [phone] Dysmenorrhea (Work) Social History Tobacco Use Types Packs/Day Years [...] Sign Reading Time Taken Comments Blood Pressure 112/82 05/11/2012 9:07 AM IN FLIGHT REFUELING SYSTEM REPAIRER Pulse 89 05/11/2012 9:07 AM IN FLIGHT REFUELING SYSTEM REPAIRER Temperature 36.7 ??C (98.1 ??F) 05/11/2012 9:07 AM IN FLIGHT REFUELING SYSTEM REPAIRER Respiratory Rate 16 05/11/2012 9:07 AM IN FLIGHT REFUELING SYSTEM REPAIRER Oxygen Saturation 99% 05/11/2012 9:07 AM IN FLIGHT REFUELING SYSTEM REPAIRER Inhaled Oxygen Concentration - - Weight 110.2 kg (243 lb) 05/11/2012 9:07 AM IN FLIGHT REFUELING SYSTEM REPAIRER Height 175.3 cm (5' 9) 05/11/2012 9:07 AM IN FLIGHT REFUELING SYSTEM REPAIRER Body Mass Index 35.88 05/11/2012 9:07 AM IN FLIGHT REFUELING SYSTEM REPAIRER documented in this encounter Progress Notes Ni Rollins PA-C - 05/15/2012 2:32 PM CST Deyanira Pitt is a 27 year old female who presents for medication management. Patient reports she has been on numerous SSRI/SNRIs and ADHD medication. She states most of them have not worked; however, she sometimes only takes them for a day or two. Her PCP is Dr. Cornelius, she states she is looking for a second opinion today. Pt states she has tried: Wellbutrin, citalopram, Zoloft, Paxil, klonopin and Cymbalta. Patient has also tried adderall, Concerta, and Strattera without improvement of symptoms. Deyanira reports she has problems with impulsivity and concentration. She states she is having marital problems due to this and to her anxiety and depression. Patient denies SI and HI. She is requestingZoloft today--she states her biological mother is on this and it works well for her. Patient reportsthat bio mom has h/o mood disorder. ROS: 10 point ROS neg other than the symptoms noted above in the HPI. Physical Exam: Consitutional: Well appearing, no acute distress Psych:awake and alert and oriented to time, place and person, anxious, minimal insight, tangential thoughts Head:Normocephalic. No masses, lesions, tenderness or abnormalities Eyes: CODY, EOMI Lungs: clear to auscultation and percussion Heart: regular rate and rhythm and no murmurs, clicks, or gallops Neuro: Gait normal. Reflexes normal and symmetric. Sensation grossly WNL. Skin: Skin color, texture, turgor normal. No rashes or lesions. Assessment/Plan: 1. Moderate major depression 2. OZZIE (generalised anxiety disorder) 3. Impulsiveness 4. Non compliance w medication regimen 5. Family history of mood disorder 6. Dysmenorrhea Patient accepts trial of Zoloft, will titrate up on this. Discussed SE, if any SI/HI or selft harm thoughts, will go to ER. [facility] for dysmenorrhea. I STRONGLY encouraged/recommended Deyanira to see psychiatry. I feel there is more going on here thanjust her self described impulsiveness due to ADHD. I discussed the importance of having a psychiatryintake given her family history, personal history and non compliance issues. Patient does NOT want areferral to psychiatry at this point in time. F/u with PCP in 4 weeks, face to Face---NOT through MyChart. TIME SPENT: 45 minutes, greater than 50% of that time was spent on face to face counseling and care coordination regarding her conditions and treatment options as discussed above. FLIGHT REFUELING SYSTEM REPAIRER documented in this encounter Nursing Notes 05/11/2012 9:15 AM CST >> ARCELIA ZHU Fri May 11, 2012 9:10 AM Patient presents with: Depression - Anxiety Initial BP 112/82 Pulse 89 Temp(Src) 98.1 ??F (36.7 ??C) (Oral) Resp 16 Ht 5' 9 (1.753 m) Wt 243 lb (110.224 kg) BMI 35.88 kg/m2 SpO2 99% LMP 04/02/2012 ? No Estimated Body mass index is 35.88 kg/(m^2) as calculated from the following: Height as of this encounter: 5' 9(1.753 m). Weight as of this encounter: 243 lb(110.224 kg).. BP completed using cuff size: large HEALTH MAINTENANCE REVIEWED WITH PT Arcelia Zhu CMA documented in this encounter Plan of Treatment Not on filedocumented as of this encounter Procedures Procedure Name Priority Date/Time Associated Diagnosis Comme nts HCG QUALITATIVE Routine 05/11/2012 9:49 AM Dysmenorrhea Result s for this URINE IN FLIGHT REFUELING SYSTEM REPAIRER procedure are i n the results section. documented in this encounter Results HCG qualitative, urine (05/11/2012 9:49 AM IN FLIGHT REFUELING SYSTEM REPAIRER) P athologist Signature HCG Qual Urine Negative NEG [facility] Specimen Anatomical Collection Method Collection Time Receive d Time (Source) Location / / Volume Laterality Urine specimen 05/11/2012 9:49 AM 012 9:50 (specimen) IN FLIGHT REFUELING SYSTEM REPAIRER AM IN FLIGHT REFUELING SYSTEM REPAIRER Ni Rollins PA-C LAB - URINE ORDERABLES Performing Organization Address City/State/ZIP Code Phon e Number [facility] [address] [place] [address] [facility] documented in this encounter Visit Diagnoses Diagnosis Moderate major depression (H) - Primary Major depressive disorder, single episod e, moderate OZZIE (generalised anxiety disorder) Generalized anxiety disorder Impulsiveness Non compliance w medication regimen Personal history of noncompliance with m edical treatment, presenting hazards to health Family history of mood disorder Family history of psychiatric condition Dysmenorrhea documented in this encounter Care Teams Jewel Grinder Relationship Specialty Start Date End Date Kiran Cornelius MD PCP - General Family Practice 10/03/11 09/21/15 Kiran Cornelius MD Family Practice 10/03/11 09/21/15 documented as of this encounter
--- OUTSIDE RECORDS SUMMARY | 2022-03-04 20:35 | XMS_ITS | Encounter Summary ---
:1985 Author Organization [place] Address [address] [place] [address] Care Team Providers Name Role Phone Kiran Cornelius MD Primary Care Provider [phone] Kiran Cornelius MD Unavailable Reason for Visit Reason Onset Date Comments Prior Authorization 05/07/2012 Concerta 18mg Encounter Details Date Type Department Care Team Description 05/07/2012 Telephone [facility] Kiran Cornelius Prior [facility] Mechelle Landin MD (Concerta 18mg) [address] [address] [address] [facility], [address] [place] [address] [place], [place] [phone] (Wo rk) [address] [phone] Social History Tobacco Use Types Packs/Day Years [...] Notes Telephone Encounter - Nirali Parekh - 05/07/2012 1:25 PM CST Patient calling stating she is in need of a prior authorization for the Concerta. Call [employer] at ID# [id number]. Called [facility] and received a verbal approval for Concerta x 1 year. Patient notified at [phone]. Nirali Parekh RN IR CAMERAMAN documented in this encounter Plan of Treatment Not on filedocumented as of this encounter Visit Diagnoses Not on filedocumented in this encounter Care Teams Electrical Assistant Relationship Specialty Start Date End Date Kiran Cornelius MD PCP - General Family Practice 10/03/11 09/21/15 Kiran Cornelius MD Family Practice 10/03/11 09/21/15 documented as of this encounter
--- OUTSIDE RECORDS SUMMARY | 2022-03-04 20:35 | XMS_ITS | Encounter Summary ---
:1985 Author Organization [place] Address [address] [place] [address] Care Team Providers Name Role Phone Kiran Cornelius MD Primary Care Provider [phone] Kiran Cornelius MD Unavailable Reason for Visit Reason Onset Date Comments Social Work Services 01/27/2012 Clinic [facility] Social Work Services 02/02/2012 Clinic [facility]ordin [facility] Encounter Details Date Type Department Care Team Description 01/27/2012 Telephone [facility] Annabella William MSW Social Work Services [facility] [phone] (Clinic Care [facility], (Work) Coordination-); [address] Social Work Services [place], [place] ([facility] [address] Coordination-) [phone] Social History Tobacco Use Types Packs/Day Years [...] this encounter Miscellaneous Notes Telephone Encounter - Annabella William MSW - 02/02/2012 3:43 PM CDT Care Coordination Social Work Assessment Referral Source: Kiran Cornelius Clinical Data: Dr. Cornelius suggested patient try therapy since medication management was not producing desired benefits. Dr. Cornelius asked SW to contact patient to assist with resources. Left message on voice mail with call back information. Plan: SW will notify Dr. Cornelius when/if patient follows thru with recommendations to seek therapy. ALEJANDRO Pretty Care Coordination-social worker health services [phone] Telephone Encounter - Annabella William MSW - 01/27/2012 2:33 PM CDT Care Coordination Social Work Assessment Referral Source: Kiran Cornelius Clinical Data: Patient claims insurance does not cover therapy. Left message on voice mail with call back information and request that pt return call. Plan: Will attempt to contact pt in 2-3 business days. ALEJANDRO Pretty Care Coordination-social worker health services [phone] documented in this encounter Plan of Treatment Not on filedocumented as of this encounter Visit Diagnoses Not on filedocumented in this encounter Care Teams Inpatient Nursing Aide Relationship Specialty Start Date End Date Kiran Cornelius MD PCP - General Family Practice 10/03/11 09/21/15 Kiran Cornelius MD Family Practice 10/03/11 09/21/15 documented as of this encounter
--- OUTSIDE RECORDS SUMMARY | 2022-03-04 20:35 | XMS_ITS | Encounter Summary ---
:1985 Author Organization [place] Address [address] [place] [address] Care Team Providers Name Role Phone Gricel Lara MD Primary Care Provider Gricel Lara MD Unavailable Reason for Visit Reason Comments Anxiety Encounter Details Date Type Department Care Team Description 09/22/2015 Emergency [facility] Morro Berry MD Panic attack; Emergency Dept [facility] Palpitations; [address] Hip pain, [place] [address] [place] [address] [phone] (Wo rk) Social History Tobacco Use Types [...] Sign Reading Time Taken Comments Blood Pressure 141/65 09/22/2015 5:46 PM CDT Pulse 90 09/22/2015 5:46 PM CDT Temperature 36.6 ??C (97.9 ??F) 09/22/2015 4:50 PM CDT Respiratory Rate 20 09/22/2015 5:46 PM CDT Oxygen Saturation 99% 09/22/2015 5:46 PM CDT Inhaled Oxygen Concentration - - Weight - - Height - - Body Mass Index - - documented in this encounter Discharge Instructions Discharge InstructionsMorro Berry MD - 09/22/2015 5:21 PM CDT Images from the original note were not included. Stress Reaction Anxiety is the feeling we all get when we think something bad might happen. It is a normal response to stress and usually causes only a mild reaction. When anxiety becomes more severe, emotions may interfere with daily life. In some cases, you may not even be aware of what it is you???re anxious about! During an anxiety reaction, you may feel like you are helpless, nervous, depressed or irritable. Your body may show signs of anxiety in many ways. You may experience dry mouth, shakiness, dizziness, weakness, trouble breathing, chest pressure, headache, nausea, diarrhea, tiredness, inability to sleep or sexual problems. Home Care: 1) Try to locate the sources of stress in your life. They may not be obvious! These may include: -- Daily hassles of life which pile up (traffic jams, missed appointments, car troubles, etc.) -- Major life changes, both good (new baby, job promotion) and bad (loss of job, loss of loved one) -- Overload: feeling that you have too many responsibilities and can't take care of all of them at once -- Feeling helpless, feeling that your problems are beyond what you???re able to solve 2) Notice how your body reacts to stress. Learn to listen to your body signals. This will help you take action before the stress becomes severe. 3) When you can, do something about the source of your stress. (Avoid hassles, limit the amount of change that happens in your life at one time and take a break when you feel overloaded). 4) Unfortunately, many stressful situations cannot be avoided. It is necessary to learn HOW TO MANAGE STRESS better. There are many proven methods that will reduce your anxiety. These include simple things like exercise, good nutrition and adequate rest. Also, there are certain techniques that are helpful: relaxation and breathing exercises, visualization, biofeedback and meditation. For more information about this, consult your doctor or go to a local bookstore and review the many books and tapes available on this subject. Follow Up If you feel that your anxiety is not responding to self-help measures, contact your doctor or make an appointment with a counselor. Get Prompt Medical Attention if any of the following occur: -- Your symptoms get worse -- Chest pain or trouble breathing -- Severe headache not relieved by rest and mild pain reliever -- Rapid or irregular heartbeat, fainting ?? [phone] [employer] [place] [address]. All rights reserved. This information is not intended as a substitute for professional medical care. Always follow your healthcare professional's instructions. documented in this encounter Medications at Time of Discharge Medication Sig Dispensed Refills Start Date End Date LORazepam (ATIVAN) 0.5 MG Take 0.5-1 tablets (0.25-0.5 mg) by mouth every 8 hours as needed for anxiety D 6 tablet 0 09/22/2015 tablet o not operate a vehicle after taking this medication Methylphenidate HCl 0 (RITALIN PO) Sertraline HCl (ZOLOFT PO) Take by mouth daily 0 albuterol (PROVENTIL HFA: Inhale 2 puffs into 1 Inhaler 3 1 06/23/2011 VENTOLIN HFA) 108 (90 the lungs every 6 BASE) MCG/ACT hours as needed for inhalerIndications: shortness of breath / Intermittent asthma dyspnea. documented as of this encounter ED Notes Morro Berry MD - 09/22/2015 5:10 PM CDT History Chief Complaint: Anxiety HPI Deyanira Pitt is a 30 year old female who presents with anxiety. The patient states that an hour ago, she began having a panic attack and felt her heart beating our of her chest. She states that sheis not currently having palpitations. The patient states that she typically has anxiety daily when she is around other people. However, she notes that her anxiety has been exacerbated as she recently started a stressful job. She states that she takes Zoloft for her anxiety, but does not have a prn medication. The patient states that she has had thoughts of cutting herself, but she states that she hasnot done so and is not suicidal. She states that she used to go to therapy which did help, but stopped going when she felt better. The patient notes that she lives with her who is not abuse, but is not very supportive as he does not understand her anxiety. Of note, she reports having left hip pain which has been present for some time. Allergies: No known drug allergies. Medications: Zoloft Ritalin Albuterol inhaler Past Medical History: Depressive Disorder ADHD Asthma Self Cutting Past Surgical History: History reviewed. No pertinent past surgical history. Family History: Unknown-Mother, Father Social History: Marital Status: Presents to the ED alone Tobacco Use: Former Smoker, quit 2011 Alcohol Use: No PCP: Gricel Lara Review of Systems Cardiovascular: Positive for palpitations. Musculoskeletal: Positive for hip pain Psychiatric/Behavioral: Negative for suicidal ideas and self-injury. The patient is nervous/anxious. All other systems reviewed and are negative. Physical Exam First Vitals: BP: 121/104 mmHg Repeat: 141/65 Pulse: 97 Heart Rate: 97 Temp: 97.9 ??F (36.6 ??C) Resp: 40 Repeat: 20 SpO2: 99 % Physical Exam Nursing note and vitals reviewed. Constitutional: Cooperative. HENT: Mouth/Throat: Mucous membranes are normal. Cardiovascular: Normal rate, regular rhythm and normal heart sounds. No murmur. Pulmonary/Chest: Effort normal and breath sounds normal. No respiratory distress. No wheezes. No rales. Musculoskeletal: Normal range of motion of LE's. Neurological: Alert. Oriented x4 Skin: Skin is warm and dry. No rash noted. Psychiatric: Anxious appearing. No suicidal ideation. Emergency Department Course ECG: @ 1723 Indication: Palpitations Vent. Rate 87 bpm. KS interval 152 ms. QRS duration 84 ms. QT/QTc 382/459 ms. P-R-T axis 40 69 28. Normal sinus rhythm. Normal ECG. Read @ [address] Berry. Emergency Department Course: Nursing notes and vitals reviewed. I performed an exam of the patient as documented above. EKG was done, interpretation as above. Findings and plan explained to the patient. Patient discharged home with instructions regarding supportive care, medications, and reasons to return. The importance of close follow-up was reviewed. The patient was prescribed Ativan. Impression & Plan Medical Decision Making: Deyanira Pitt is a 30 year old female who presents with palpitations and anxiety symptoms. She had been having some success at her therapist, but when she felt better she stopped going. I think she would benefit from getting back involved with this and she has good insight into this discussion. She did have palpitations so EKG was obtained with normal results as detailed above. She has had some thoughts about cutting, but has not done so and has no other thoughts of suicidal ideation or self harm. She lives at home with her who is not abusive, but does not have a good understanding of anxiety related events. She would benefit from a short course of as needed ativan until she can get back i nto therapy. There is no indication for further workup at this time. She did complain of left hip pain. This has been going on for months. There is no acute indication for imaging. She can follow up with her regular physician as this likely represents trochanteric bursitis. Patient has had her questions answered and is comfortable with this plan. She will be discharged home. Diagnosis: ICD-10-CM 1. Panic attack F41.0 2. Palpitations R00.2 3. Hip pain, left M25.552 Disposition: discharged to home Discharge Medications: New Prescriptions LORAZEPAM (ATIVAN) 0.5 MG TABLET Take 0.5-1 tablets (0.25-0.5 mg) by mouth every 8 hours as needed for anxiety D o not operate a vehicle after taking this medication I, Heather Valenzuela, am serving as a scribe on 09/22/2015 at 5:10 PM to personally document services performed by Dr. Berry based on my observations and the provider's statements to me. 09/22/2015 [facility] Morro Berry MD 09/22/15 1911 documented in this encounter Plan of Treatment Not on filedocumented as of this encounter Procedures Procedure Name Priority Date/Time Associated Diagnosis Comme nts EKG 12-LEAD, STAT 09/22/2015 5:23 PM Results f or this TRACING ONLY CDT procedure are i n the results section. documented in this encounter Results EKG 12 lead (09/22/2015 5:23 PM CDT) [facility] gist Method Time Signature Interpretation ECG Click View RADIOLOGY Image link RESULTS to view waveform and result Specimen (Source) Anatomical Collection Method Collection Time Re ceived Time Location / / Volume Laterality 09/22/2015 5:23 PM CDT Morro Berry MD ECG ORDERABLES Performing Organization Address City/State/ZIP Code Phon e Number RADIOLOGY RESULTS documented in this encounter Visit Diagnoses Diagnosis Panic attack Panic disorder without agoraphobia Palpitations Hip pain, left Pain in joint, pelvic region and thigh documented in this encounter Care Teams Planting Supervisor Relationship Specialty Start Date End Date Gricel Lara MD PCP - General Family Practice 09/22/15 06/06/20 [facility] [id number] [place] [address] Gricel Lara MD Family Practice 09/22/15 [facility] [address] [place] [address] documented as of this encounter
--- OUTSIDE RECORDS SUMMARY | 2022-03-04 20:35 | XMS_ITS | Encounter Summary ---
:1985 Author Organization [place] Address [address] [place] [address]. [place] [address] Care Team Providers Name Role Phone Kiran Cornelius MD Primary Care Provider [phone] Kiran Cornelius MD Unavailable Reason for Visit Reason Onset Date Comments Refill Request 03/19/2012 citalopram Encounter Details Date Type Department Care Team Description 03/19/2012 MyC Refill [facility] Kathryn Colbert Refill Request Clinic Mechelle Olmos MD (citalopram) [address] [place] [address] [place], [place] [phone] (Wo rk) [address] [phone] Social History Tobacco Use Types Packs/Day Years [...] on filedocumented in this encounter Care Teams Account Executive Key Accounts Relationship Specialty Start Date End Date iKran Cornelius MD PCP - General Family Practice 10/03/11 09/21/15 Kiran Cornelius MD Family Practice 10/03/11 09/21/15 documented as of this encounter
--- OUTSIDE RECORDS SUMMARY | 2022-03-04 20:35 | XMS_ITS | Encounter Summary ---
:1985 Author Organization [place] Address [address] [facility] [place] [address] Care Team Providers Name Role Phone Gricel Lara MD Unavailable No Ref-Primary, Physician Primary Care Provider [phone] Reason for Visit Reason Comments Urgent Care Back Pain Dull back [id number] h aving pain in lower right abdomen that radiates into back-not feel ing wellnausea Encounter Details Date Type Department Care Team Description 06/07/2020 Office Visit [facility] Karen Capps Right karina ed abdominal Urgent Care Ramses Lerma PA-C pain (Primary Dx) [address] [address] [facility] [address] [place], [place] [id number] Social History Tobacco Use Types Packs/Day Years [...] with No / Unsure 06/07/2020 2:58 PM EMERGENCY ROOM TECHNICIAN someone who was confirmed or suspected to have Coronavirus / COVID-19? documented as of this encounter Last Filed Vital Signs Vital Sign Reading Time Taken Comments Blood Pressure 126/80 06/07/2020 3:14 PM EMERGENCY ROOM TECHNICIAN Pulse 83 06/07/2020 3:14 PM EMERGENCY ROOM TECHNICIAN Temperature 37 ??C (98.6 ??F) 06/07/2020 3:14 PM EMERGENCY ROOM TECHNICIAN Respiratory Rate 20 06/07/2020 3:14 PM EMERGENCY ROOM TECHNICIAN Oxygen Saturation 98% 06/07/2020 3:14 PM EMERGENCY ROOM TECHNICIAN Inhaled Oxygen Concentration - - Weight - - Height - - Body Mass Index - - documented in this encounter Patient Instructions Patient InstructionsKaren Capps PA-C - 06/07/2020 3:00 PM EMERGENCY ROOM TECHNICIAN Go to ER at [facility]. GENCY ROOM TECHNICIAN documented in this encounter Progress Notes Karen Capps PA-C - 06/07/2020 3:00 PM CST HPI: Deyanira Pitt is a 35 year old female who presents for evaluation of R sided abdominal pain onset2 weeks ago. Pain was mild and more of an irritation and localized to RUQ for 2 weeks, but today it has changed. Pain is now in R mid abdomen and has worsened in severity; it is described as a twisting sensation and radiates into her mid back intermittently. Pain is worse when slouching or if standing and taking a deep breath. She has also felt nauseous today. She took Advil without relief. Patientreports no fever/chills, headache, chest pain, shortness of breath, vomiting, diarrhea, rash, urinary symptoms, or any other symptoms. No history of gallstones or kidney stones. Her menses started 2 days ago. Past Medical History: Diagnosis Date ??? ADHD (attention deficit hyperactivity disorder) ??? Anxiety ??? Asthma ??? Deliberate self-cutting ??? Depressive disorder ??? PCOS (polycystic ovarian syndrome) Vitals: 06/07/20 1514 BP: 126/80 Pulse: 83 Resp: 20 Temp: 98.6 ??F (37 ??C) TempSrc: Tympanic SpO2: 98% Physical Exam Vitals signs and nursing note reviewed. Pulmonary: Effort: Pulmonary effort is normal. Abdominal: General: Bowel sounds are normal. Palpations: Abdomen is soft. Tenderness: There is abdominal tenderness. There is no right CVA tenderness, left CVA tenderness, guarding or rebound. Positive signs include McBurney's sign. Negative signs include Jones's sign. Musculoskeletal: Lumbar back: Normal. Neurological: Mental Status: She is alert. Labs/Imaging: Results for orders placed or performed in visit on 06/07/20 (from the past 24 hour(s)) *UA reflex to Microscopic and Culture ([place] [facility] (except [place] and [place]) Specimen: Midstream Urine Result Value Ref Range Color Urine Red Appearance Urine Cloudy Glucose Urine Negative NEG^Negative mg/dL Bilirubin Urine Negative NEG^Negative Ketones Urine Negative NEG^Negative mg/dL Specific [place] Urine 1.025 1.003 - 1.035 Blood Urine Large (A) NEG^Negative pH Urine 5.5 5.0 - 7.0 pH Protein Albumin Urine 30 (A) NEG^Negative mg/dL Urobilinogen Urine 0.2 0.2 - 1.0 EU/dL Nitrite Urine Negative NEG^Negative Leukocyte Esterase Urine Negative NEG^Negative Source Midstream Urine Urine Microscopic Result Value Ref Range WBC Urine 0 - 5 OTO5^0 - 5 /HPF RBC Urine >100 (A) OTO2^O - 2 /HPF Squamous Epithelial /LPF Urine Few FEW^Few /LPF Bacteria Urine Few (A) NEG^Negative /HPF Clinical Decision Making: UA without sign of infection, RBCs present but suspect due to patient's menses. No CVAT so low suspicion for nephrolithiasis, but symptoms may be due to kidney stone that has traveled lower within the urinary tract. Differential diagnosis also includes but is not limited to cholecystitis, choledocholithiasis, pancreatitis, appendicitis, diverticulitis, ovarian torsion, abdominal muscle strain. [facility] so I have advised she go to ER at [facility] for abdominal imaging to rule out appendicitis and other acute etiologies for her symptoms. She will go by private vehicle. See patient instructions below. At the end of the encounter, I discussed results, diagnosis, medications. Discussed red flags for immediate return to clinic/ER, as well as indications for follow up if no improvement. Patient understood and agreed to plan. Patient was stable for discharge. ICD-10-CM 1. Right sided abdominal pain R10.9 *UA reflex to Microscopic and Culture ([place] [facility] (except [place] and [place]) Urine Microscopic Transfer to ED via private car JERAMY Ac PA-C [facility] Patient Instructions Go to ER at [facility]. GENCY ROOM TECHNICIAN documented in this encounter Plan of Treatment Not on filedocumented as of this encounter Procedures Procedure Name Priority Date/Time Associated Comments Diagnosis URINE MICROSCOPIC Routine 06/07/2020 3:10 PM Right sided Resu lts for this EMERGENCY ROOM TECHNICIAN abdominal pain procedure are in the results section. UA MACROSCOPIC WITH Routine 06/07/2020 3:10 PM Right sided Re sults for this REFLEX TO MICROSCOPIC EMERGENCY ROOM TECHNICIAN abdominal pain proc edure are in AND CULTURE the results section. documented in this encounter Results (ABNORMAL) Urine Microscopic (06/07/2020 3:10 PM EMERGENCY ROOM TECHNICIAN) Analysis Performed At Patho logist Time Signature WBC Urine 0 - 5 OTO5^0 - 5 06/07/2020 [place] /HPF 3:30 PM EMERGENCY ROOM TECHNICIAN [facility] RBC Urine >100 (A) OTO2^O - 2 06/07/2020 [facility] /HPF 3:30 PM EMERGENCY ROOM TECHNICIAN [facility] Squamous Few FEW^Few 06/07/2020 [place] Epithelial /LPF /LPF 3:30 PM EMERGENCY ROOM TECHNICIAN [facility] Bacteria Urine Few (A) NEG^Negati 06/07/2020 [place] ve /HPF 3:30 PM EMERGENCY ROOM TECHNICIAN [facility] Specimen Anatomical Collection Method Collection Time Receive d Time (Source) Location / / Volume Laterality 06/07/2020 3:10 PM 3:12 EMERGENCY ROOM TECHNICIAN PM EMERGENCY ROOM TECHNICIAN Jory Benjamin PA-C LAB - URINE ORDERABLES Performing Organization Address City/State/ZIP Code Phon e Number [facility] [phone] [place] [address] (ABNORMAL) *UA reflex to Microscopic and Culture ([place] [facility] (except [place] and[place]) (06/07/2020 3:10 PM EMERGENCY ROOM TECHNICIAN) [place] gist Method Time Signature Color Urine Red 06/07/2020 [place] 3:30 PM EMERGENCY ROOM TECHNICIAN [facility] Appearance Urine Cloudy 06/07/2020 [place] 3:30 PM EMERGENCY ROOM TECHNICIAN [facility] Glucose Urine Negative NEG^Negat 06/07/2020 [place] emi mg/dL 3:30 PM [facility] Bilirubin Urine Negative NEG^Negat 06/07/2020 [place] emi 3:30 PM EMERGENCY ROOM TECHNICIAN [facility] Ketones Urine Negative NEG^Negat 06/07/2020 [place] emi mg/dL 3:30 PM [facility] Specific [place] 1.025 1.003 - 06/07/2020 [place] Urine 1.035 3:30 PM [facility] Blood Urine Large (A) NEG^Negat 06/07/2020 [place] emi 3:30 PM [facility] pH Urine 5.5 5.0 - 7.0 06/07/2020 [place] pH 3:30 PM [facility] Protein Albumin 30 (A) NEG^Negat 06/07/2020 [place] Urine emi mg/dL 3:30 PM [facility] Urobilinogen 0.2 0.2 - 1.0 06/07/2020 [place] Urine EU/dL 3:30 PM [facility] Nitrite Urine Negative NEG^Negat 06/07/2020 [place] emi 3:30 PM [facility] Leukocyte Negative NEG^Negat 06/07/2020 [place] Esterase Urine emi 3:30 PM [facility] Source Midstream 06/07/2020 [place] Urine 3:13 PM [facility] Specimen (Source) Anatomical Collection Method Collection Time Re ceived Time Location / / Volume Laterality Examination of 06/07/2020 3:10 06/07/2020 3:12 midstream urine PM EMERGENCY ROOM TECHNICIAN PM EMERGENCY ROOM TECHNICIAN specimen (procedure) Jory Benjamin PA-C LAB - URINE ORDERABLES Performing Organization Address City/State/ZIP Code Phon e Number [facility] [id number] [place] [address] documented in this encounter Visit Diagnoses Diagnosis Right sided abdominal pain - Primary Abdominal pain, unspecified site documented in this encounter Care Teams Manpower Development Advisor Relationship Specialty Start Date End Date No Ref-Primary, Physician PCP - General 06/07/20 Gricel Lara MD Family Practice 09/22/15 [facility] [address] [place] [address] documented as of this encounter
--- OUTSIDE RECORDS SUMMARY | 2022-03-04 20:35 | XMS_ITS | Encounter Summary ---
:1985 Author Organization [place] Address [address] [place] [address]. [place] [address] Care Team Providers Name Role Phone Kiran Cornelius MD Primary Care Provider [phone] Kiran Cornelius MD Unavailable Reason for Referral Consultation (Routine) - Closed Specialty Diagnoses / Procedures Referred By Contact Refer red To Contact Kiran Cornelius MD TOBACCO CESSATION PROGRAM [address] [facility] [address] [address] [place] [address] [place] [address] Fax: Referral ID Status Reason Start Date Expiration Date Visits Requ ested Visits Authorized [id number] Closed 09/24/2012 03/23/2013 1 1 Reason for Visit Reason Comments Health Maintenance TDAP due, PHQ 9 and OZZIE Nicotine Dependence would like to start Wellbutr in to quit smoking Health Maintenance Asthma Do ACT and AAP Encounter Details Date Type Department Care Team Description 09/24/2012 Office Visit [facility] Kiran Cornelius Tobacco a buse (Primary Dx); Clinic Mechelle Landin MD Intermittent asthma [place] [address] [facility], [address] [place] [id number] Social History Tobacco Use [...] Sign Reading Time Taken Comments Blood Pressure 124/88 09/24/2012 10:18 AM CDT Pulse 74 09/24/2012 10:18 AM CDT Temperature 36.9 ??C (98.4 ??F) 09/24/2012 10:18 AM CDT Respiratory Rate 14 09/24/2012 10:18 AM CDT Oxygen Saturation 98% 09/24/2012 10:18 AM CDT Inhaled Oxygen Concentration - - Weight 108.5 kg (239 lb 3.2 oz) 09/24/2012 10:18 AM CDT Height 176.8 cm (5' 9.6) 09/24/2012 10:18 AM CDT Body Mass Index 34.72 09/24/2012 10:18 AM CDT documented in this encounter Patient Instructions Patient InstructionsBeKiran cruz MD - 09/24/2012 10:43 AM CDT Quit Day - 2 weeks from now. Start Wellbutrin 3 days before Quit Day, on Quit Day start second daily tab. documented in this encounter Progress Notes Kiran Cornelius MD - 09/24/2012 10:32 AM CDT HPI Currently still smoking. Currently smoking 1/2 ppd or less daily. Also working working on loosing weight. Has used both Wellbutrin in the past, as well as Chantix. Has increase in depression symptoms from [place]. Review of Systems Constitutional: Negative. Respiratory: Negative. Cardiovascular: Negative. Psychiatric/Behavioral: Positive for depression. The patient is nervous/anxious and has insomnia. Physical Exam Vitals reviewed. Constitutional: She is oriented to person, place, and time and well-developed, well-nourished, and in no distress. Eyes: Conjunctivae normal and EOM are normal. Cardiovascular: Normal rate, regular rhythm and normal heart sounds. Pulmonary/Chest: Effort normal and breath sounds normal. Musculoskeletal: She exhibits no edema. Neurological: She is alert and oriented to person, place, and time. Skin: Skin is warm and dry. 305.1 Tobacco abuse (primary encounter diagnosis) Comment: also referred to quit plan Plan: buPROPion (WELLBUTRIN) 100 MG tablet 493.90 Intermittent asthma Comment: Plan: ASTHMA CONTROL TEST, Asthma Action Plan (AAP) RTC in 1m Kiran Cornelius MD documented in this encounter Nursing Notes 09/24/2012 10:15 AM CDT >> [place] [facility] Mon Sep 24, 2012 10:26 AM Patient presents with: Health Maintenance - TDAP due, PHQ 9 and OZZIE Nicotine Dependence - would like to start Wellbutrin to quit smoking Health Maintenance - Asthma Do ACT and AAP Initial BP 124/88 Pulse 74 Temp 98.4 ??F (36.9 ??C) (Oral) Resp 14 Ht 5' 9.6 (1.768 m) Wt239 lb 3.2 oz (108.5 kg) BMI 34.72 kg/m2 SpO2 98% LMP 09/23/2012 ? No EstimatedBody mass index is 34.72 kg/(m^2) as calculated from the following: Height as of this encounter: 5' 9.6(1.768 m). Weight as of this encounter: 239 lb 3.2 oz(108.5 kg).. BP completed using cuff size: large SMA Serafin documented in this encounter Plan of Treatment Scheduled Referrals Name Type Priority Associated Diagnoses Order S chedule CALL IT QUITS (QUITPLAN) Referral Routine Ord ered: 09/24/2012 REFERRAL documented as of this encounter Procedures Procedure Name Priority Date/Time Associated Diagnosis Comme nts ASTHMA ACTION PLAN Routine 09/24/2012 10:43 AM CDT Intermitten t asthma documented in this encounter Visit Diagnoses Diagnosis Tobacco abuse - Primary Tobacco use disorder Intermittent asthma Unspecified asthma documented in this encounter Care Teams Commercial Carpet Installer Relationship Specialty Start Date End Date Kiran Cornelius MD PCP - General Family Practice 10/03/11 09/21/15 Kiran Cornelius MD Family Practice 10/03/11 09/21/15 documented as of this encounter
--- OUTSIDE RECORDS SUMMARY | 2022-03-04 20:35 | XMS_ITS | Encounter Summary ---
:1985 Author Organization [place] Address [address] [place] [address]. [place] [address] Care Team Providers Name Role Phone Kiran Cornelius MD Primary Care Provider [phone] Kiran Cornelius MD Unavailable Reason for Visit Reason Onset Date Comments Depression 08/30/2012 Encounter Details Date Type Department Care Team Description 08/30/2012 Telephone [facility] Kiran Cornelius MD Depression [place] [address] [place] [address] [address] [place] [address] [phone] Social History Tobacco Use Types Packs/Day Years [...] as of this encounter Visit Diagnoses Diagnosis Moderate major depression (H) - Primary Major depressive disorder, single episod e, moderate documented in this encounter Care Teams Geodetic Computator Relationship Specialty Start Date End Date Kiran Cornelius MD PCP - General Family Practice 10/03/11 09/21/15 Kiran Cornelius MD Family Practice 10/03/11 09/21/15 documented as of this encounter
--- OUTSIDE RECORDS SUMMARY | 2022-03-04 20:35 | XMS_ITS | Encounter Summary ---
:1985 Author Organization [place] Address [address] [place] [address]. [place] [address] Care Team Providers Name Role Phone Kiran Cornelius MD Primary Care Provider [phone] Kiran Cornelius MD Unavailable Reason for Visit Reason Onset Date Comments Refill Request 03/19/2012 citalopram-duplicate Encounter Details Date Type Department Care Team Description 03/19/2012 MyC Refill [facility] Kathryn Colbert Refill Request Clinic Mechelle Olmos MD (citalopram-duplicate) [address] [place] [address] [place], [place] [phone] (Wo rk) [address] [phone] Social History Tobacco Use Types Packs/Day Years [...] on filedocumented in this encounter Care Teams Video Journalist Relationship Specialty Start Date End Date Kiran Cornelius MD PCP - General Family Practice 5/7/12 4/25/16 Kiran Cornelius MD Family Practice 10/03/11 09/21/15 documented as of this encounter
--- OUTSIDE RECORDS SUMMARY | 2022-03-04 20:35 | XMS_ITS | Encounter Summary ---
:1985 Author Organization [place] Address [address] [place] [address]. [place] [address] Care Team Providers Name Role Phone Kiran Cornelius MD Primary Care Provider [phone] Kiran Cornelius MD Unavailable Encounter Details Date Type Department Care Team Description 08/04/2012 Results Only [facility] [place] [address] [place] [address] [place] [address] [phone] Social History Tobacco Use Types Packs/Day Years [...] as of this encounter Plan of Treatment Scheduled Orders Name Type Priority Associated Diagnoses Order S chedule US Pelvic Complete w Imaging Ordered : 08/04/2012 Transvaginal documented as of this encounter Visit Diagnoses Not on filedocumented in this encounter Care Teams Railroad Crossing Protection Maintainer Relationship Specialty Start Date End Date Kiran Cornelius MD PCP - General Family Practice 10/03/11 09/21/15 Kiran Cornelius MD Family Practice 10/03/11 09/21/15 documented as of this encounter
--- OUTSIDE RECORDS SUMMARY | 2022-03-04 20:35 | XMS_ITS | Encounter Summary ---
:1985 Author Organization [place] Address [address] [place] [address]. [place] [address] Care Team Providers Name Role Phone Gricel Lara MD Unavailable No Ref-Primary, Physician Primary Care Provider [phone] Encounter Details Date Type Department Care Team Description 01/28/2021 Travel Social History Tobacco Use Types Packs/Day [...] on filedocumented in this encounter Care Teams Vitamin Manager Relationship Specialty Start Date End Date No Ref-Primary, Physician PCP - General 06/07/20 Gricel Lara MD Family Practice 09/22/15 [facility] [id number] [place] [address] documented as of this encounter
--- OUTSIDE RECORDS SUMMARY | 2022-03-04 20:35 | XMS_ITS | Encounter Summary ---
:1985 Author Organization [place] Address [address] [place] [address]. [place] [address] Care Team Providers Name Role Phone Kiran Cornelius MD Primary Care Provider [phone] Kiran Cornelius MD Unavailable Reason for Referral - Closed Specialty Diagnoses / Procedures Referred By Contact Refer red To Contact Diagnoses Moderate major depression (H) Ni Rollins PA-C [address] [place] [phone] Referral ID Status Reason Start Date Expiration Date Visits Requ ested Visits Authorized [id number] Closed 05/11/2012 11/07/2012 1 1 [place] DEPARTMENT RESET Reason for Visit Reason Onset Date Comments Patient Request 05/11/2012 referral psychiatry Encounter Details Date Type Department Care Team Description 05/11/2012 Telephone [facility] Ni Rollins Pati ent Request Clinic [facility] SHAMIR (referral psychiatry) [address] [place] [phone] (Wo rk) Social History Tobacco Use Types [...] this encounter Miscellaneous Notes Telephone Encounter - Brayan Tinoco - 05/11/2012 4:03 PM CST Pt states she will call [facility]. Will verify insurance coverage. Pt called insurance and found these psychiatrists are covered: Andriy Chapin, on [address] in [facility] [phone] or Rhys Stark or Rabia Carbajal [facility] - [phone] Brayan Hernandez RN [place] DEPART[place] RES[place] Telephone Encounter - Kathleen Oconnor - 05/11/2012 3:58 PM CST Left message for pt to call back [place] DE[place] Telephone Encounter - Ni Rollins PA-C - 05/11/2012 3:34 PM [place] DEPARTMENT RESET [facility] [phone] [place] DE[place] RES[place] Telephone Encounter - Brayan Tinoco - 05/11/2012 3:27 PM CST Pt reports she has decided to follow through with Ni's recommendation this morning - pt will accept referral to psychiatry. Pt informed we will call her back with a scheduling number. Brayan Hernandez RN [place] RES[place] documented in this encounter Plan of Treatment Scheduled Referrals Name Type Priority Associated Diagnoses Order S [facility] MENTAL HEALTH REFERRAL Referral Routine Moderate major Ord ered: 05/11/2012 depression (H) documented as of this encounter Visit Diagnoses Diagnosis Moderate major depression (H) - Primary Major depressive disorder, single episod e, moderate documented in this encounter Care Teams Abalone Processor Relationship Specialty Start Date End Date Kiran Cornelius MD PCP - General Family Practice 10/03/11 09/21/15 Kiran Cornelius MD Family Practice 10/03/11 09/21/15 documented as of this encounter
--- OUTSIDE RECORDS SUMMARY | 2022-03-04 20:35 | XMS_ITS | Encounter Summary ---
:1985 Author Organization [place] Address [address] [place] [address] Care Team Providers Name Role Phone Kiran Cornelius MD Primary Care Provider [phone] Kiran Cornelius MD Unavailable Encounter Details Date Type Department Care Team Description 11/20/2012 Orders Only [facility] Uns pecified episodic mood disorder (Primary Dx); [facility] Anxiety state, unspecified [facility], [address] [place] [address] Social History Tobacco Use Types Packs/Day Years [...] Name Priority Date/Time Associated Diagnosis Comme nts UREA NITROGEN (BUN) Routine 11/20/2012 8:02 AM Unspecified epi sodic Results for this CDT mood disorder procedure are in Anxiety state, the results unspecified section. TSH Routine 11/20/2012 8:02 AM Unspecified episodic R esults for this CDT mood disorder procedure are in Anxiety state, the results unspecified section. CREATININE Routine 11/20/2012 8:02 AM Unspecified episodic R esults for this CDT mood disorder procedure are in Anxiety state, the results unspecified section. documented in this encounter Results Creatinine (11/20/2012 8:02 AM CDT) athologist Signature Creatinine 0.87 0.52 - [facility] 1.04 mg/dL CLINIC LAB GFR Estimate 77 >60 [place] mL/min/1.7 CLINIC LAB m2 GFR Estimate If >90 >60 [facility] Black mL/min/1.7 CLINIC LAB m2 Specimen Anatomical Collection Method Collection Time Receive d Time (Source) Location / / Volume Laterality Blood specimen 11/20/2012 8:02 AM 013 8:04 (specimen) CDT AM CDT Fran Juarez MD LAB - BLOOD ORDERABLES Performing Organization Address City/[facility] Phon e Number [facility] [address] [place] [address] [phone] [facility] [address] [place] [phone] Urea nitrogen (11/20/2012 8:02 AM CDT) athologist Signature Urea Nitrogen 7 5 - 24 [facility] mg/dL CLINIC LAB Specimen Anatomical Collection Method Collection Time Receive d Time (Source) Location / / Volume Laterality Blood specimen 11/20/2012 8:02 AM 013 8:04 (specimen) CDT AM CDT Fran Juarez MD LAB - BLOOD ORDERABLES Performing Organization Address City/[facility] Phon e Number [facility] [address] [place] [address] [phone] [facility] [address] [place] [phone] TSH (11/20/2012 8:02 AM CDT) athologist Signature TSH 2.53 0.4 - 5.0 [place] mU/L CLINIC LAB Specimen Anatomical Collection Method Collection Time Receive d Time (Source) Location / / Volume Laterality Blood specimen 11/20/2012 8:02 AM 013 8:04 (specimen) CDT AM CDT Fran Juarez MD LAB - BLOOD ORDERABLES Performing Organization Address City/State/ZIP Code Phon e Number [facility] [address] [place] [phone] [facility] [address] [place] [phone] documented in this encounter Visit Diagnoses Diagnosis Unspecified episodic mood disorder - Mariella placido Anxiety state, unspecified documented in this encounter Care Teams Dyed Yarn Operator Relationship Specialty Start Date End Date Kiran Cornelius MD PCP - General Family Practice 10/03/11 09/21/15 Kiran Cornelius MD Family Practice 10/03/11 09/21/15 documented as of this encounter
--- OUTSIDE RECORDS SUMMARY | 2022-03-04 20:35 | XMS_ITS | Encounter Summary ---
:1985 Author Organization [place] Address [address] [place] [id number] Care Team Providers Name Role Phone Kiran Cornelius MD Primary Care Provider [phone] Kiran Cornelius MD Unavailable Encounter Details Date Type Department Care Team Description 11/28/2012 Orders Only [facility] Uns pecified episodic mood disorder (Primary Dx); [facility] Anxiety state, unspecified [facility], [address] [place] [phone] Social History Tobacco Use [...] documented as of this encounter Miscellaneous Notes Addendum Note - Yany Carlson - 11/28/2012 11:05 AM CDT Addended by: YANY CARLSON on: 11/28/2012 11:05 AM Modules accepted: Orders documented in this encounter Plan of Treatment Not on filedocumented as of this encounter Procedures Procedure Name Priority Date/Time Associated Diagnosis Comme nts UREA NITROGEN (BUN) Routine 11/28/2012 11:03 Unspecified episo dic Results for this AM CDT mood disorder procedure are in Anxiety state, the results unspecified section. TSH Routine 11/28/2012 11:03 Unspecified episodic Res ults for this AM CDT mood disorder procedure are in Anxiety state, the results unspecified section. CREATININE Routine 11/28/2012 11:03 Unspecified episodic Res ults for this AM CDT mood disorder procedure are in Anxiety state, the results unspecified section. documented in this encounter Results Creatinine (11/28/2012 11:03 AM CDT) athologist Signature Creatinine 0.86 0.52 [facility] 1.04 mg/dL [facility] GFR Estimate 78 >60 [facility] mL/min/1.7 [facility] m2 GFR Estimate If >90 >60 [facility] Black mL/min/1.7 [facility] m2 Specimen Anatomical Collection Method Collection Time Receive d Time (Source) Location / / Volume Laterality Blood specimen 11/28/2012 11:03 3 (specimen) AM CDT 11:05 AM CDT Fran Juarez MD LAB - BLOOD ORDERABLES Performing Organization Address City/State/ZIP Code Phon e Number [facility] [address] [place] [address] [phone] [facility] [address] [place] [phone] Urea nitrogen (11/28/2012 11:03 AM CDT) athologist Signature Urea Nitrogen 7 5 - 24 [facility] mg/dL CLINIC LAB Specimen Anatomical Collection Method Collection Time Receive d Time (Source) Location / / Volume Laterality Blood specimen 11/28/2012 11:03 3 (specimen) AM CDT 11:05 AM CDT Fran Juarez MD LAB - BLOOD ORDERABLES Performing Organization Address City/State/ZIP Code Phon e Number [facility] [address] [place] [address] [phone] [facility] [address] [place] [phone] TSH (11/28/2012 11:03 AM CDT) P athologist Signature TSH 1.01 0.4 - 5.0 [facility] mU/L CLINIC LAB Specimen Anatomical Collection Method Collection Time Receive d Time (Source) Location / / Volume Laterality Blood specimen 11/28/2012 11:03 3 (specimen) AM CDT 11:05 AM CDT Fran Juarez MD LAB - BLOOD ORDERABLES Performing Organization Address City/State/ZIP Code Phon e Number [facility] [address] [place] [phone] [facility] [address] [place] [phone] documented in this encounter Visit Diagnoses Diagnosis Unspecified episodic mood disorder - Mariella placido Anxiety state, unspecified documented in this encounter Care Teams Clothing Sales Assistant Relationship Specialty Start Date End Date Kiran Cornelius MD PCP - General Family Practice 10/03/11 09/21/15 Kiran Cornelius MD Family Practice 10/03/11 09/21/15 documented as of this encounter
--- OUTSIDE RECORDS SUMMARY | 2022-03-04 20:35 | XMS_ITS | Encounter Summary ---
:1985 Author Organization [facility] Address [address] [place] [address] Care Team Providers Name Role Phone Gricel Lara MD Unavailable No Ref-Primary, Physician Primary Care Provider [phone] Reason for Visit Reason Comments Abdominal Pain Encounter Details Date Type Department Care Team Description 06/07/2020 Emergency [facility] [place], Rosemary RUQ abdom inal pain; [facility] lynn Quigley PA-C Muscle spasm [address] [facility] [place], [place] [phone] [address] [phone] [address] [place], [place] [address] (Wo rk) Social History Tobacco Use Types [...] with No / Unsure 06/07/2020 2:58 PM ARCHITECT someone who was confirmed or suspected to have Coronavirus / COVID-19? documented as of this encounter Last Filed Vital Signs Vital Sign Reading Time Taken Comments Blood Pressure 116/78 06/07/2020 7:23 PM ARCHITECT Pulse 64 06/07/2020 7:23 PM ARCHITECT Temperature 36.8 ??C (98.2 ??F) 06/07/2020 4:13 PM ARCHITECT Respiratory Rate 16 06/07/2020 7:23 PM ARCHITECT Oxygen Saturation 99% 06/07/2020 7:23 PM ARCHITECT Inhaled Oxygen Concentration - - Weight - - Height - - Body Mass Index - - documented in this encounter Discharge Instructions Discharge InstructionsRosemary Thakkar PA-C - 06/07/2020 7:11 PM ARCHITECT Discharge Instructions Abdominal Pain Abdominal pain (belly pain) can be caused by many things. Your evaluation today does not show the exact cause for your pain. Your provider today has decided that it is unlikely your pain is due to a life threatening problem, or a problem requiring surgery or hospital admission. Sometimes those problems cannot be found right away, so it is very important that you follow up as directed. Sometimes only the changes which occur over time allow the cause of your pain to be found. Generally, every Emergency Department visit should have a follow-up clinic visit with either a primary or a specialty clinic/provider. Please follow-up as instructed by your emergency provider today. With abdominal pain, we often recommend very close follow-up, such as the following day. ADULTS: Return to the Emergency Department right away if: You get an oral temperature above 102oF or as directed by your provider. You have blood in your stools. This may be bright red or appear as black, tarry stools. You keep vomiting (throwing up) or cannot drink liquids. You see blood when you vomit. You cannot have a bowel movement or you cannot pass gas. Your stomach gets bloated or bigger. Your skin or the whites of your eyes look yellow. You faint. You have bloody, frequent or painful urination (peeing). You have new symptoms or anything that worries you. CHILDREN: Return to the Emergency Department right away if your child has any of the above-listed symptoms or the following: Pushes your hand away or screams/cries when his/her belly is touched. You notice your child is very fussy or weak. Your child is very tired and is too tired to eat or drink. Your child is dehydrated. Signs of dehydration can be: Significant change in the amount of wet diapers/urine. Your or child starts to have dry mouth and lips, or no saliva (spit) or tears. WOMEN: Return to the Emergency Department right away if you have any of the above-listed symptoms or the following: You have bleeding, leaking fluid or passing tissue from the vagina. You have worse pain or cramping, or pain in your shoulder or back. You have vomiting that will not stop. You have a temperature of 100oF or more. Your baby is not moving as much as usual. You faint. You get a bad headache with or without eye problems and abdominal pain. You have a seizure. You have unusual discharge from your vagina and abdominal pain. Abdominal pain is pretty common during . Your pain may or may not be related to your . You should follow-up closely with your OB provider so they can evaluate you and your baby. Untilyou follow-up with your regular provider, do the following: Avoid sex and do not put anything in your vagina. Drink clear fluids. Only take medications approved by your provider. MORE INFORMATION: Appendicitis: A possible cause of abdominal pain in any person who still has their appendix is acuteappendicitis. Appendicitis is often hard to diagnose. Testing does not always rule out early appendicitis or other causes of abdominal pain. Close follow-up with your provider and re-evaluations may beneeded to figure out the reason for your abdominal pain. Follow-up: It is very important that you make an appointment with your clinic and go to the appointment. If you do not follow-up with your primary provider, it may result in missing an important development which could result in permanent injury or disability and/or lasting pain. If there is any problem keeping your appointment, call your provider or return to the Emergency Department. Medications: Take your medications as directed by your provider today. Before using [id number], ask your provider and make sure to take the medications as directed. If you have any questions about medications, ask your provider. Diet: Resume your normal diet as much as possible, but do not eat fried, fatty or spicy foods while you have pain. Do not drink alcohol or have caffeine. Do not smoke tobacco. Probiotics: If you have been given an antibiotic, you may want to also take a probiotic pill or eat yogurt with live cultures. Probiotics have good bacteria to help your intestines stay healthy. Studies have shown that probiotics help prevent diarrhea (loose stools) and other intestine problems (including C. diff infection) when you take antibiotics. You can buy these without a prescription in the pharmacy section of the store. If you were given a prescription for medicine here today, be sure to read all of the information (including the package insert) that comes with your prescription. This will include important information about the medicine, its side effects, and any warnings that you need to know about. The pharmacist who fills the prescription can provide more information and answer questions you may have about the medicine. If you have questions or concerns that the pharmacist cannot address, please call or return to the Emergency Department. Remember that you can always come back to the Emergency Department if you are not able to see your regular provider in the amount of time listed above, if you get any new symptoms, or if there is anything that worries you. ITECT AttachmentsThe following attachments cannot be sent through Care Everywhere. Muscle Spasm (Latvian)documented in this encounter Medications at Time of Discharge Medication Sig Dispensed Refills Start Date End Date albuterol (PROVENTIL HFA: Inhale 2 puffs into 1 Inhaler 3 1 06/23/2011 VENTOLIN HFA) 108 (90 the lungs every 6 BASE) MCG/ACT hours as needed for inhalerIndications: shortness of breath Intermittent asthma / dyspnea. buPROPion (WELLBUTRIN XL) 0 06/07/2020 150 [...] 0 1 tablet daily Sertraline HCl (ZOLOFT Take by mouth daily 0 PO) traZODone (DESYREL) 50 MG Take 50 mg by mouth 0 1 07/18/2019 tablet lidocaine (LIDODERM) 5 % Place 1 patch onto 10 patch 0 02/202106/17/2020 patch the skin every 24 hours for 10 days methocarbamol (ROBAXIN) Take 1 tablet (750 15 tablet 0 05/2906/12/2020 750 MG tablet mg) by mouth 3 times daily as needed for muscle spasms documented as of this encounter ED Notes Brayan Hagen RN - 06/07/2020 4:12 PM CST Pt arrives from clinic with RUQ abd pain for 2 weeks worsening today. Pt states area was tender whenMD palpated at clinic. +nausea, no vomiting or diarrhea. ABCs intact. Rosemary Momin PA-C - 06/07/2020 4:10 PM CST History Chief Complaint: Abdominal Pain The history is provided by the patient. Deyanira Pitt is a 35 year old female with history of PCOS who presents alone for evaluation of ongoing right upper quadrant abdominal pain for the last two weeks, worsening today. Patient notes pain is also exacerbated with bending over and is pleuritic in nature, thus was prompted to present to clinic. Patient states that while at clinic, the right upper quadrant was prominently more tender, so she was referred to the ED for further evaluation. Here, patient states that she also had onset of nausea this morning at 1000, but despite pain and nausea, she was able to tolerate PO intake. She states she felt slightly improved after eating. She describes the pain is more achy, but can become intermittently sharp and initially thought it was due toconstipation, but had a normal bowel movement earlier today. She has not experienced any cough, hemoptysis, urinary symptoms, chest pain, shortness of breath, vomiting or leg swelling. Patient is currently on his menstrual cycle and denies any chance of . She has not had any injury or trauma to this area. Of note, patient states she has been less active due to COVID-19 and has the below riskfactors. Cardiac/PE/DVT Risk Factors: History of hypertension - No History of hyperlipidemia - No History of diabetes - No History of smoking - Former Personal history of PE/DVT - No Family history of PE/DVT - No Family history of heart complications - No Recent travel - No Recent surgery - No Other immobilizations - No Cancer - No Review of Systems Respiratory: Negative for cough (No hemoptysis) and shortness of breath. Cardiovascular: Negative for chest pain and leg swelling. Gastrointestinal: Positive for abdominal pain and nausea. Negative for constipation and vomiting. Genitourinary: Negative for dysuria, frequency, hematuria and urgency. All other systems reviewed and are negative. Allergies: The patient has no known allergies. Medications: Albuterol inhaler Wellbutrin Ativan Ritalin Zoloft Trazodone Past Medical History: ADHD Anxiety Asthma Deliberate self-cutting Depressive disorder PCOS Family History: Unknown/adopted. Social History: The patient was unaccompanied to the ED. The patient used to be a former smoker - quit 2 years ago. The patient is . Physical Exam Patient Vitals for the past 24 hrs: BP Temp Temp src Pulse Resp SpO2 06/07/20 1730 112/80 -- -- 67 -- 99 % 06/07/20 1645 111/69 -- -- 76 -- 100 % 06/07/20 1613 (!) 145/98 98.2 ??F (36.8 ??C) Oral 75 18 100 % Physical Exam General: Alert and interactive. Appears well. Cooperative and pleasant. Eyes: The pupils are equal and round. EOMs intact. No scleral icterus. ENT: No abnormalities to the external nose or ears. Mucous membranes moist. Posterior oropharynx is non-erythematous. Neck: Trachea is in the midline. No nuchal rigidity. CV: Regular rate and rhythm. S1 and S2 normal without murmur, click, gallop or rub. Resp: Breath sounds are clear bilaterally, without rhonchi, wheezes, rales. Non- labored, no retractions or accessory muscle use. GI: Abdomen is soft without distension. No tenderness to palpation. No peritoneal signs. MS: Moving all extremities well. Good muscle tone. No bony tenderness to right lower ribs. Skin: Warm and dry. No rash or lesions noted. Neuro: Alert and oriented x 3. No focal neurologic deficits. Good strength and sensation in upper and lower extremities. Psych: Awake. Alert. Normal affect. Appropriate interactions. Lymph: No anterior or posterior cervical lymphadenopathy noted. Emergency Department Course Imaging: Abdomen US, limited (RUQ only): IMPRESSION: 1. ??Normal limited abdominal ultrasound. Reading per radiology. Laboratory: CBC: AWNL (WBC 5.7, HGB 11.9, PLT 251) CMP: AWNL (Creatinine 0.81) Lipase: 120 Emergency Department Course: Reviewed: I reviewed nursing notes, vitals and past medical history Assessments: (1619) I performed an exam as noted above. She declines pain medications at this time. (1900) I rechecked the patient. Updated regarding results. Discussed plan of care and patient will be discharged. Disposition: The patient was discharged to home. Impression & Plan Medical Decision Making: Deyanira Pitt is a 35 year old female who presents for evaluation of right upper quadrant abdominal pain. The patient states that she has had right upper abdominal pain and rib pain for the past 2 weeks. She states it exacerbated when bending over and is sometimes pleuritic in nature, thus prompting her evaluation in the clinic who sent her here for further evaluation. She has absolutely no tenderness in her lower abdomen, making appendicitis, diverticulitis, or bowel obstruction less likely. Additionally, the patient has minimal tenderness in the right upper quadrant. Given that this was the location of her pain, did obtain an ultrasound to rule out cholecystitis, cholangitis, or choledocholithiasis. Her right upper quadrant ultrasound is negative. Labs are reassuring without any signs of leukocytosis, anemia, renal dysfunction, or liver dysfunction. She is PERC negative, and very low risk per Wells criteria. I do not feel as though she needs dimer testing at this time, as the chances of pulmonary embolism without any risk factors, lower leg swelling, or vital abnormalities is quite low. Ad ditionally, the patient has no chest pain or shortness of breath to signal ACS, and I do not think EKG or troponin is necessary. No falls of trauma to suggest pneumothorax or rib fracture. I suspect this is probably muscular in etiology. I have suggested that she use a muscle relaxant, avoid lifting her heavy son, and use lidocaine patches. Should she have continued pain over the next week she needs to be seen by primary care for further evaluation. Return immediately for new chest pain or shortnessof breath, fevers or chills, other worrisome concerns. Diagnosis: ICD-10-CM 1. RUQ abdominal pain R10.11 2. Muscle spasm M62.838 Discharge Medications: New Prescriptions LIDOCAINE (LIDODERM) 5 % PATCH Place 1 patch onto the skin every 24 hours for 10 days METHOCARBAMOL (ROBAXIN) 750 MG TABLET Take 1 tablet (750 mg) by mouth 3 times daily as needed for muscle spasms Scribe Disclosure: I, Deepthi Ayon, am serving as a scribe at 4:16 PM on 06/07/2020 to document services personally performed by Rosemary Thakkar PA-C based on my observations and the provider's statements to me. Rosemary Thakkar PA-C 06/07/201927 Rosemary Thakkar PA-C 06/07/201927 ITECT documented in this encounter Plan of Treatment Not on filedocumented as of this encounter Procedures Procedure Name Priority Date/Time Associated Comments Diagnosis US ABDOMEN LIMITED STAT 06/07/2020 6:23 PM Res ults for this ARCHITECT procedure are i n the results section. CBC WITH PLATELETS & STAT 06/07/2020 4:47 PM R esults for this DIFFERENTIAL ARCHITECT procedure are i n the results section. LIPASE STAT 06/07/2020 4:47 PM Results f or this ARCHITECT procedure are i n the results section. COMPREHENSIVE STAT 06/07/2020 4:47 PM Results for this METABOLIC PANEL ARCHITECT procedure ar e in the results section. documented in this encounter Results Abdomen US, limited (RUQ only) (06/07/2020 6:23 PM ARCHITECT) Anatomical Region Laterality Modality Abdomen/Pelvis Ultrasound Specimen (Source) Anatomical Collection Method Collection Time Re ceived Time Location / / Volume Laterality 06/07/2020 6:05 PM ARCHITECT Impressions 06/07/2020 6:28 PM ARCHITECT IMPRESSION: 1. ??Normal limited abdominal ultrasound . Narrative 06/07/2020 6:28 PM ARCHITECT EXAM: US ABDOMEN LIMITED LOCATION: [facility] DATE/TIME: 06/07/2020 6:05 PM INDICATION: Right upper quadrant pain COMPARISON: None. TECHNIQUE: Limited abdominal ultrasound. FINDINGS: GALLBLADDER: Normal. No gallstones, wall thickening, or pericholecystic fluid. Negative sonographic Jones's sign. BILE DUCTS: No biliary dilatation. The c ommon duct measures 2 mm. LIVER: Normal parenchyma with smooth con tour. No focal mass. RIGHT KIDNEY: No hydronephrosis. PANCREAS: The visualized portions are no rmal. No ascites. Procedure Note Andriy Means MD - 06/07/2020Formatt ing of this note might be different from the original. EXAM: US ABDOMEN LIMITED LOCATION: [facility] DATE/TIME: 06/07/2020 6:05 PM INDICATION: Right upper quadrant pain COMPARISON: None. TECHNIQUE: Limited abdominal ultrasound. FINDINGS: GALLBLADDER: Normal. No gallstones, wall thickening, or pericholecystic fluid. Negative sonographic Jones's sign. BILE DUCTS: No biliary dilatation. The c ommon duct measures 2 mm. LIVER: Normal parenchyma with smooth con tour. No focal mass. RIGHT KIDNEY: No hydronephrosis. PANCREAS: The visualized portions are no rmal. No ascites. IMPRESSION: 1. Normal limited abdominal ultrasound. Rosemary Thakkar PA-C IMG US ORDERABLES Lipase (06/07/2020 4:47 PM ARCHITECT) athologist Signature Lipase 120 73 - 393 06/07/[address] [facility] U/L 5:17 PM ARCHITECT HOSPITAL Specimen Anatomical Collection Method Collection Time Receive d Time (Source) Location / / Volume Laterality Blood specimen 06/07/2020 4:47 PM 021 4:52 (specimen) ARCHITECT PM ARCHITECT Rosemary Thakkar PA-C LAB - BLOOD ORDERABLES Performing Organization Address City/State/ZIP Code Phon e Number [facility] [address] [address] [facility] [address] [phone] Comprehensive metabolic panel (06/07/2020 4:47 PM ARCHITECT) athologist Signature Sodium 140 133 - 144 06/07/2020 [place] mmol/L 5:10 PM [facility] Potassium 3.6 3.4 - 5.3 06/07/2020 [place] mmol/L 5:10 PM [facility] Chloride 108 94 - 109 06/07/2020 [facility] mmol/L 5:10 PM [facility] Carbon Dioxide 29 20 - 32 06/07/2020 [facility] mmol/L 5:15 PM [facility] Anion Gap 3 3 - 14 06/07/2020 [facility] mmol/L 5:15 PM [facility] Glucose 90 70 - 99 06/07/2020 [facility] mg/dL 5:15 PM [facility] Urea Nitrogen 10 7 - 30 06/07/2020 [facility] mg/dL 5:15 PM [facility] Creatinine 0.81 0.52 - 06/07/2020 [facility] 1.04 mg/dL 5:15 PM [facility] GFR Estimate >90 >60 06/07/2020 [place] mL/min/{1. 5:15 PM [facility] 73_m2} HOSPITAL Comment: Non GFR Calc Starting 05/15/2018, serum creatinine ba sed estimated GFR (eGFR) will be calculated using the Chronic Kidney Dise [facility] Epidemiology Collaboration (CKD-EPI) equation. GFR Estimate If >90 >60 mL/min/{1.73_m2} 06/07/2020 5: 15 PM [facility] Comment: GFR Calc Starting 05/15/2018, serum creatinine ba sed estimated GFR (eGFR) will be calculated using the Chronic Kidney Dise [facility] Epidemiology Collaboration (CKD-EPI) equation. Calcium 9.1 8.5 - 10.1 mg/dL 06/07/2020 5:15 PM [facility] Bilirubin Total 0.4 0.2 - 1.3 mg/dL 06/07/2020 5:17 PM [facility] Albumin 3.6 3.4 - 5.0 g/dL 06/07/2020 5:17 PM [facility] Protein Total 7.7 6.8 - 8.8 g/dL 06/07/2020 5:17 PM [facility] Alkaline Phosphatase 69 40 - 150 U/L 06/07/2020 5:17 PM [facility] ALT 17 0 - 50 U/L 06/07/2020 5:17 PM [facility] AST 19 0 - 45 U/L 06/07/2020 5:17 PM [facility] Specimen Anatomical Collection Method Collection Time Receive d Time (Source) Location / / Volume Laterality Blood specimen 06/07/2020 4:47 PM 021 4:52 (specimen) ARCHITECT PM ARCHITECT Rosemary Thakkar PA-C LAB - BLOOD ORDERABLES Performing Organization Address City/State/ZIP Code Phon e Number [facility] [address] [place], [place] [address] [facility] [address] [place], [place] [address] [place] [address] CBC with platelets differential (06/07/2020 4:47 PM ARCHITECT) [facility] gist Method Time Signature WBC 5.7 4.0 - 06/07/2020 [facility] 11.0 4:56 PM [facility] 10e9/L [facility] RBC Count 4.10 3.8 - 5.2 06/07/2020 [facility] 10e12/L 4:56 PM [facility] Hemoglobin 11.9 11.7 - 06/07/2020 [facility] 15.7 g/dL 4:56 PM [facility] Hematocrit 36.6 35.0 - 06/07/2020 [facility] 47.0 % 4:56 PM [facility] MCV 89 78 - 100 06/07/2020 [facility] fl 4:56 PM [facility] MCH 29.0 26.5 - 06/07/2020 [facility] 33.0 pg 4:56 PM [facility] MCHC 32.5 31.5 - 06/07/2020 [facility] 36.5 g/dL 4:56 PM [facility] RDW 12.5 10.0 - 06/07/2020 [facility] 15.0 % 4:56 PM [facility] Platelet Count 251 150 - 450 06/07/2020 [facility] 10e9/L 4:56 PM [facility] Diff Method Automated 06/07/2020 [facility] Method 4:56 PM [facility] % Neutrophils 58.3 % 06/07/2020 [facility] 4:56 PM [facility] % Lymphocytes 30.9 % 06/07/2020 [facility] 4:56 PM [facility] % Monocytes 8.6 % 06/07/2020 [facility] 4:56 PM [facility] % Eosinophils 1.6 % 06/07/2020 [facility] 4:56 PM [facility] % Basophils 0.4 % 06/07/2020 [facility] 4:56 PM [facility] % Immature 0.2 % 06/07/2020 [facility] Granulocytes 4:56 PM [facility] Nucleated RBCs 0 0 /100 06/07/2020 [facility] 4:56 PM [facility] Absolute 3.3 1.6 - 8.3 06/07/2020 [facility] Neutrophil 10e9/L 4:56 PM [facility] Absolute 1.8 0.8 - 5.3 06/07/2020 [facility] Lymphocytes 10e9/L 4:56 PM [facility] Absolute 0.5 0.0 - 1.3 06/07/2020 [facility] Monocytes 10e9/L 4:56 PM [facility] Absolute 0.1 0.0 - 0.7 06/07/2020 [facility] Eosinophils 10e9/L 4:56 PM [facility] Absolute 0.0 0.0 - 0.2 06/07/2020 [facility] Basophils 10e9/L 4:56 PM [facility] Abs Immature 0.0 0 - 0.4 06/07/2020 [facility] Granulocytes 10e9/L 4:56 PM [facility] Absolute 0.0 06/07/2020 [facility] Nucleated RBC 4:56 PM [facility] Specimen Anatomical Collection Method Collection Time Receive d Time (Source) Location / / Volume Laterality Blood specimen 06/07/2020 4:47 PM 021 4:52 (specimen) ARCHITECT PM ARCHITECT Rosemayr Thakkar PA-C LAB - BLOOD ORDERABLES Performing Organization Address City/State/ZIP Code Phon e Number [facility] [address] [address] [facility] [address] [phone] documented in this encounter Visit Diagnoses Diagnosis RUQ abdominal pain Abdominal pain, right upper quadrant Muscle spasm Spasm of muscle documented in this encounter Care Teams Swatch Clerk Relationship Specialty Start Date End Date No Ref-Primary, Physician PCP - General 06/07/20 Gricel Lara MD Family Practice 09/22/15 [facility] [address] [place], [place] [id number] documented as of this encounter
--- OUTSIDE RECORDS SUMMARY | 2022-03-04 20:35 | XMS_ITS | Encounter Summary ---
:1985 Author Organization [place] Address [facility] [place] [address] Care Team Providers Name Role Phone Kiran Cornelius MD Primary Care Provider [phone] Kiran Cornelius MD Unavailable Reason for Visit Reason Comments Medication Problem would like to discuss medica tions A.D.H.D still a really big problem w ould like to talk about Straterra Shingles was at [facility] a month ago for Shingles Asthma acts up with activity and wh en around friends cats would like an albuterol inhaler Encounter Details Date Type Department Care Team Description 04/23/2012 Office Visit [facility] Kiran Cornelius ADHD (att ention deficit hyperactivity disorder) (Primary Dx); Clinic Mechelle Landin MD Intermittent asthma; [place] [id number] [address] MALINDAAneesh OZZIE (generalised anxiety disorder) [facility], [address] [place] [phone] Social History Tobacco Use [...] Sign Reading Time Taken Comments Blood Pressure 122/72 04/23/2012 7:27 AM UTILITY OPERATOR YARN Pulse 94 04/23/2012 7:27 AM UTILITY OPERATOR YARN Temperature 36.7 ??C (98 ??F) 04/23/2012 7:27 AM UTILITY OPERATOR YARN Respiratory Rate 16 04/23/2012 7:27 AM UTILITY OPERATOR YARN Oxygen Saturation 99% 04/23/2012 7:27 AM UTILITY OPERATOR YARN Inhaled Oxygen Concentration - - Weight 110.2 kg (243 lb) 04/23/2012 7:27 AM UTILITY OPERATOR YARN Height 175.3 cm (5' 9) 04/23/2012 7:27 AM UTILITY OPERATOR YARN Body Mass Index 35.88 04/23/2012 7:27 AM UTILITY OPERATOR YARN documented in this encounter Progress Notes Kiran Cornelius MD - 04/23/2012 7:38 AM CST HPI Lots of behavior concerns. Mostly concerns about side effects with medications and reluctance to take meds. In discussing with most of issues revolve around ADD type symptoms - disorganized, loosing things, procrastination, easily distracted. When younger had mostly inattentive type. Adderall made her really anxious. Had been on straterra in the past - pretty high dose, had lots of side effects. Feels she sleeps too much - although it can take an hour to fall asleep. Usually lots of rumination during this time. Usually sleeps about 10 hours. Would prefer to not use medications. Also - had issues with exercise inuced asthma, also sometimes with URI. Seen in UC for shingles 3-4 weeks ago. Treated with Valtrex at the time. Rash across back and one patch on abdomen. Review of Systems Constitutional: Negative. Respiratory: Negative for sputum production. Cardiovascular: Negative for palpitations. Psychiatric/Behavioral: Negative for depression and suicidal ideas. The patient is nervous/anxious and has insomnia. Physical Exam Vitals reviewed. Constitutional: She is well-developed, well-nourished, and in no distress. Neck: No thyromegaly present. Cardiovascular: Normal rate, regular rhythm and normal heart sounds. Pulmonary/Chest: Effort normal and breath sounds normal. Skin: No rash noted. Psychiatric: Mood and affect normal. ADHD (attention deficit hyperactivity disorder) (primary encounter diagnosis) Comment: willing to try straterra - low dose. Plan: Vitamin D Deficiency, TSH with free T4 reflex, atomoxetine (STRATTERA) 25 MG capsule Intermittent asthma Comment: Plan: albuterol (PROVENTIL HFA: VENTOLIN HFA) 108 (90 BASE) MCG/ACT inhaler, ASTHMA CONTROL TEST, Asthma Action Plan (AAP) OZZIE (generalised anxiety disorder) Comment: Plan: Vitamin D Deficiency, TSH with free T4 reflex RTC in 1m Kiran Cornelius MD ITY OPERATOR YARN documented in this encounter Nursing Notes 04/23/2012 7:30 AM CST >> YOLANDA GOOD Mon Apr 23, 2012 7:31 AM Patient presents with: Medication Problem - would like to discuss medications A.D.H.D - still a really big problem would like to talk about Straterra Shingles - was at [facility] a month ago for Shingles Asthma - acts up with activity and when around friends cats would like an albuterol inhaler Initial BP 122/72 Pulse 94 Temp(Src) 98 ??F (36.7 ??C) (Oral) Resp 16 Ht 5' 9 (1.753 m) Wt 239 lb (108.41 kg) BMI 35.29 kg/m2 SpO2 99% LMP 04/02/2012 ? NoBMIHIS@ BP completed using cuff size large. Yolanda Good, Registered Nurse Ambulatory documented in this encounter Miscellaneous Notes Addendum Note - Yolanda Good - 04/23/2012 8:42 AM UTILITY OPERATOR YARN Addended by: YOLANDA GOOD on: 04/23/2012 08:42 AM Modules accepted: Orders, SmartSet ITY OPERATOR YARN documented in this encounter Plan of Treatment Not on filedocumented as of this encounter Procedures Procedure Name Priority Date/Time Associated Diagnosis Comme nts VITAMIN D Routine 04/23/2012 8:09 AM OZZIE (generalised Resul ts for this DEFICIENCY UTILITY OPERATOR YARN anxiety disorder ) procedure are in SCREENING ADHD (attention the results deficit hyperactivity sectio n. disorder) TSH WITH FREE T4 Routine 04/23/2012 8:09 AM OZZIE (generalised R esults for this REFLEX UTILITY OPERATOR YARN anxiety disorder ) procedure are in ADHD (attention the results deficit hyperactivity sectio n. disorder) ASTHMA ACTION PLAN Routine 04/23/2012 7:50 AM Intermittent ast hma UTILITY OPERATOR YARN documented in this encounter Results TSH with free T4 reflex (04/23/2012 8:09 AM UTILITY OPERATOR YARN) athologist Signature TSH 3.89 0.4 - 5.0 [facility] Specimen Anatomical Collection Method Collection Time Receive d Time (Source) Location / / Volume Laterality Blood specimen 04/23/2012 8:09 AM 012 8:11 (specimen) UTILITY OPERATOR YARN AM UTILITY OPERATOR YARN Kiran Cornelius MD LAB - BLOOD ORDERABLES Performing Organization Address City/State/ZIP Code Phon e Number [facility] [address], [place] [address] [facility] LAB (ABNORMAL) Vitamin D Deficiency (04/23/2012 8:09 AM UTILITY OPERATOR YARN) athologist Signature Vitamin D 21 (L) 30 - 75 [facility] Deficiency ug/L [facility] LABS Comment: Season, race, dietary intake, and treatm ent affect the concentration of 82-faqbbou-Qatmixh D. Values may decrea se during winter months and increase during summer months. Values less than 30 ug/L may indicate Vitamin D deficiency. Vitamin D determiniation is routinely p erformed by an immunoassay specific for 25 hydroxyvitamin D3. ??If an individua l is on vitamin D2 (ergocalciferol) supplementation, please specify 25 OH v itamin D2 and D3 level determination by LCMSMS test VITD23. ??For questions, pl ease contact the laboratory at [phone]. Specimen Anatomical Collection Method Collection Time Receive d Time (Source) Location / / Volume Laterality Blood specimen 04/23/2012 8:09 AM 012 8:11 (specimen) UTILITY OPERATOR YARN AM UTILITY OPERATOR YARN Kiran Cornelius MD LAB - BLOOD ORDERABLES Performing Organization Address City/State/ZIP Code Phon e Number [facility] [address] [place] [address] [facility] documented in this encounter Visit Diagnoses Diagnosis ADHD (attention deficit hyperactivity di sorder) - Primary Attention deficit disorder with hyperact ivity Intermittent asthma Unspecified asthma OZZIE (generalised anxiety disorder) Generalized anxiety disorder documented in this encounter Care Teams [place] Consultant Relationship Specialty Start Date End Date Kiran Cornelius MD PCP - General Family Practice 10/03/11 09/21/15 Kiran Cornelius MD Family Practice 10/03/11 09/21/15 documented as of this encounter
--- OUTSIDE RECORDS SUMMARY | 2022-03-04 20:36 | XMS_ITS | Encounter Summary ---
:1985 Author Organization [place] Address [address] [place] [address]. [place] [address] Care Team Providers Name Role Phone Tory Villagran MD Primary Care Provider [phone] Tory Villagran MD Unavailable Reason for Visit Reason Comments Recheck Medication switched Metformin on Monday to XR now belly problems resolved. Would like to talk about swi tching to a non stimulant ADHD med Encounter Details Date Type Department Care Team Description 11/21/2011 Office Visit [facility] Tory Villagran ADHD (att ention deficit Clinic Mechelle Landin MD hyperactivity disorder) [place] [address] [facility] (Primary Dx) [facility], [address] [place] [phone] Social History Tobacco Use [...] Sign Reading Time Taken Comments Blood Pressure 124/82 11/21/2011 7:09 AM CDT Pulse 70 11/21/2011 7:09 AM CDT Temperature 36.4 ??C (97.5 ??F) 11/21/2011 7:09 AM CDT Respiratory Rate 16 11/21/2011 7:09 AM CDT Oxygen Saturation 98% 11/21/2011 7:09 AM CDT Inhaled Oxygen Concentration - - Weight 108.4 kg (239 lb) 11/21/2011 7:09 AM CDT Height 176.5 cm (5' 9.5) 11/21/2011 7:09 AM CDT Body Mass Index 34.79 11/21/2011 7:09 AM CDT documented in this encounter Progress Notes Tory Villagran MD - 11/21/2011 8:18 AM CDT Addended by: TORY VILLAGRAN on: 11/21/2011 08:18 AM Modules accepted: Orders, Medications Tory Villagran MD - 11/21/2011 7:15 AM CDT HPI Having trouble with focus, feels that this is worse when on SSRIs. Was diagnosed with ADD at 15y. Had been Adderall, but had to stop out of concern for anxiety. Has also tried Straterra. Has quit smoking and is exercising on a regular basis and feels anxiety is much better controlled. No longer using clonipin. Still financially difficult to get to counseling. Metformen XR working well. ROS Physical Exam ADHD (attention deficit hyperactivity disorder) (primary encounter diagnosis) Comment: past history reviewed Plan: methylphenidate (RITALIN) 10 MG tablet May use PRN, may take 1/2 tab if side effects too strong RTC in Tory Villagran MD Greater than 50% of this 30 minute visit spent in counseling and coordination of care. Topics discussed included: AdHD history, medication options, medication management, follow-up documented in this encounter Nursing Notes 11/21/2011 7:00 AM CDT >> YOLANDA FLORENTINO MonNov 21, 2011 7:12 AM Patient presents with: Recheck Medication - switched Metformin on Monday to XR now belly problems resolved. Would like to talk about switching to a non stimulant ADHD med Initial BP 124/82 Pulse 70 Temp(Src) 97.5 ??F (36.4 ??C) (Oral) Resp 16 Ht 5' 9.5 (1.765 m) Wt 239 lb (108.41 kg) BMI 34.79 kg/m2 SpO2 98% LMP 11/07/2011MIHIS@ BP completed using cuff size large. Yolanda Ohara, Orange Peel Operator documented in this encounter Plan of Treatment Not on filedocumented as of this encounter Visit Diagnoses Diagnosis ADHD (attention deficit hyperactivity di sorder) - Primary Attention deficit disorder with hyperact ivity documented in this encounter Care Teams Cmm Operator Relationship Specialty Start Date End Date Tory Villagran MD PCP - General Family Practice 10/03/11 09/21/15 Tory Villagran MD Family Practice 10/03/11 09/21/15 documented as of this encounter
--- OUTSIDE RECORDS SUMMARY | 2022-03-04 20:36 | XMS_ITS | Encounter Summary ---
:1985 Author Organization [place] Address [address] [place] [address] Care Team Providers Name Role Phone Tory Villagran MD Primary Care Provider [phone] Tory Villagran MD Unavailable Reason for Visit Reason Comments Physical pap fasting labs Pre Visit Planning - Done Encounter Details Date Type Department Care Team Description 10/27/2011 Office Visit [facility] Tory Villagran g eneral medical examination at a health care facility (Primary Dx); Clinic Mechelle Landin MD OZZIE (generalised anxiety disorder); [place] [address] [facility], [address] [place] [address] [place], [place] [phone] (Wo rk) [id number] [phone] Social History Tobacco Use Types Packs/Day Years [...] Sign Reading Time Taken Comments Blood Pressure 122/84 10/27/2011 7:06 AM CDT Pulse 86 10/27/2011 7:06 AM CDT Temperature 36.8 ??C (98.2 ??F) 10/27/2011 7:06 AM CDT Respiratory Rate 16 10/27/2011 7:06 AM CDT Oxygen Saturation 98% 10/27/2011 7:06 AM CDT Inhaled Oxygen Concentration - - Weight 106.6 kg (235 lb) 10/27/2011 7:06 AM CDT Height 175.9 cm (5' 9.25) 10/27/2011 7:06 AM CDT Body Mass Index 34.45 10/27/2011 7:06 AM CDT documented in this encounter Patient Instructions Patient InstructionsYolanda Good - 10/19/2011 1:17 PM CDT PREVENTIVE HEALTH RECOMMENDATIONS: Get a Pap test each year. If you have 3 normal tests in a row, you may have the test every 2 to 3 years. You do not need a Pap test if you've had a hysterectomy (removal of uterus) and have not had cancer. You should be tested each year for STDs (sexually transmitted diseases), if you're at risk. Vaccines: Get a flu shot each year. Get a tetanus shot every 10 years. Eat at least 5 servings of fruits and vegetables daily. Eat whole-grain bread, whole-wheat pasta and brown rice instead of white grains and rice. For bone health: Eat calcium-rich foods or take calcium pills (500 to 600 mg) twice a day with food.Also take vitamin D (1000 IUs) each day. Exercise for at least 150 minutes a week (an average of 30 minutes a day, 5 days of the week). This will help you control your weight and prevent disease. Limit alcohol to one drink per day. No smoking. Wear sunscreen to prevent skin cancer. See your dentist twice a year for an exam and cleaning. Have a cholesterol test every 5 years. If you are at risk for diabetes, you should have a diabetes test (fasting glucose). documented in this encounter Progress Notes Yolanda Good - 10/27/2011 7:58 AM CDT Addended by: YOLANDA GOOD on: 10/27/2011 Modules accepted: Orders Tory Villagran MD - 10/19/2011 1:17 PM CDT SUBJECTIVE: CC: Jimmy Pitt is an 26 year old woman who presents for preventive health visit. Besides routine health maintenance, she has no other health concerns today . Healthy Habits: Do you get at least three servings of calcium containing foods daily (dairy, green leafy vegetables,etc.)? yes Outside of work or daily activities, how many days per week do you exercise for 30 minutes or longer? 2 Dietary Guidelines for Americans, 2010 USDA's MyPlate Estimated Body mass index is 34.45 kg/(m^2) as calculated from the following: Height as of this encounter: 5' 9.25(1.759 m). Weight as of this encounter: 235 lb(106.595 kg). Have you had an eye exam in the past two years? no Do you see a dentist twice per year? yes Staff Signature Yolanda Good CMA Today's PHQ-2 Score: Abuse: Current or Past(Physical, Sexual or Emotional)- No Do you feel safe in your environment - Yes History Substance Use Topics ??? Smoking status: Former Smoker Quit date: 08/19/2011 ??? Smokeless tobacco: Former User Quit date: 05/03/2011 ??? Alcohol Use: No not currently The patient does not drink >3 drinks per day nor >7 drinks per week. Last Mammo:No results found. Last lipid profile: Total Cholesterol: No results found for this basename: chol LDL Cholesterol: No results found for this basename: ldl HDL Cholesterol: No results found for this basename: hdl Reviewed orders with patient. Reviewed health maintenance and updated orders accordingly - Yes Staff Signature Yolanda Good CMA Reviewed anxiety off SSRI and now on clonazepam. Finds that it is very helpful, is tolerating well. Uses mostly for work and large group situations and has days where she doesn't use it. Unknown pap hx - says maybe at 19 she had something abnl, but nothing since. Does have strong mittelschmertz - feels she only ovulates about 5x a year. Is fasting this am. LMP 10/10/11. History of abnormal Pap smear: No All Histories reviewed and updated in [facility]. ROS: C: NEGATIVE for fever, chills, change in weight I: NEGATIVE for worrisome rashes, moles or lesions E: NEGATIVE for vision changes or irritation ENT: NEGATIVE for ear, mouth and throat problems R: NEGATIVE for significant cough or SOB B: NEGATIVE for masses, tenderness or discharge CV: NEGATIVE for chest pain, palpitations or peripheral edema GI: NEGATIVE for nausea, abdominal pain, heartburn, or change in bowel habits : NEGATIVE for unusual urinary or vaginal symptoms. Periods are regular. M: NEGATIVE for significant arthralgias or myalgia N: NEGATIVE for weakness, dizziness or paresthesias P: NEGATIVE for changes in mood or affect OBJECTIVE: BP 122/84 Pulse 86 Temp(Src) 98.2 ??F (36.8 ??C) (Oral) Resp 16 Ht 5' 9.25 (1.759 m) Wt 235 lb (106.595 kg) BMI 34.45 kg/m2 SpO2 98% LMP 10/10/2011 GENERAL APPEARANCE: healthy, alert and no distress EYES: Eyes grossly normal to inspection, PERRL and conjunctivae and sclerae normal HENT: ear canals and TM's normal, nose and mouth without ulcers or lesions, oropharynx clear and oral mucous membranes moist NECK: no adenopathy, no asymmetry, masses, or scars and thyroid normal to palpation RESP: lungs clear to auscultation - no rales, rhonchi or wheezes BREAST: normal without masses, tenderness or nipple discharge and no palpable axillary masses or adenopathy CV: regular rate and rhythm, normal S1 S2, no S3 or S4, no murmur, click or rub, no peripheral edemaand peripheral pulses strong ABDOMEN: soft, nontender, no hepatosplenomegaly, no masses and bowel sounds normal (female): normal female external genitalia, vaginal mucosa pink, moist, well rugated and normal cervix, adnexae, and uterus without masses or discharge (female): normal female external genitalia, vaginal mucosa pink, moist, well rugated, normal cervix, adnexae, and uterus without masses. and adnexal mass right MS: no musculoskeletal defects are noted and gait is age appropriate without ataxia SKIN: no suspicious lesions or rashes, increased hair along sideburns, nipples and lower abdomen NEURO: Normal strength and tone, sensory exam grossly normal, mentation intact and speech normal PSYCH: mentation appears normal and affect normal/bright ATP III Guidelines FRAX Risk Assessment ICSI Preventive Guidelines ASSESSMENT/PLAN: V70.0 Routine general medical examination at a health care facility (primary encounter diagnosis) Comment: lipid screening, baseline labs Plan: LIPID REFLEX TO DIRECT LDL PANEL, PAP IMAGED THIN LAYER SCREEN, CBC with platelets, Basic metabolic panel 300.02F OZZIE (generalised anxiety disorder) Comment: refill Plan: clonazePAM (KLONOPIN) 0.5 MG tablet 620.9X Mass, ovarian Comment: Plan: US Pel W/Trans* COUNSELING: regular exercise vision screening reports that she quit smoking about 2 months ago. She quit smokeless tobacco use about 5 months ago. Body mass index is 34.45 kg/(m^2). Weight management plan: Current exercise routine: walking. Established an exercise regimen with the patient. documented in this encounter Nursing Notes 10/27/2011 7:00 AM CDT >> YOLANDA GOOD Albertina October 27, 2011 7:10 AM Patient presents with: Physical - pap fasting labs Pre Visit Planning - Done Initial BP 122/84 Pulse 86 Temp(Src) 98.2 ??F (36.8 ??C) (Oral) Resp 16 Ht 5' 9.25 (1.759 m) Wt 235 lb (106.595 kg) BMI 34.45 kg/m2 SpO2 98% LMP 10/10/2011MIHIS@ BP completed using cuff size regular. Yolanda Good, Assistant Professor Of Forestry documented in this encounter Plan of Treatment Not on filedocumented as of this encounter Procedures Procedure Name Priority Date/Time Associated Diagnosis Comme nts WET PREPARATION Routine 10/27/2011 7:57 AM Routine general Res ults for this CDT medical examination procedur e are in at a health care the results facility section. Mass, ovarian PAP IMAGED THIN Routine 10/27/2011 7:52 AM Routine general Res ults for this LAYER SCREEN CDT medical examination procedur e are in at a health care the results facility section. LIPID REFLEX TO Routine 10/27/2011 7:52 AM Routine general Res ults for this DIRECT LDL PANEL CDT medical examination proc edure are in at a health care the results facility section. BASIC METABOLIC Routine 10/27/2011 7:52 AM Routine general Res ults for this PANEL CDT medical examination procedur e are in at a health care the results facility section. CBC WITH PLATELETS Routine 10/27/2011 7:52 AM Routine general Results for this CDT medical examination procedur e are in at a health care the results facility section. documented in this encounter Results Wet prep (10/27/2011 7:57 AM CDT) Component Value Ref Test [facility] Range Method Time Signature Specimen Vagina [facility] Description [facility] Wet Prep No Trichomonas seen [facility] No clue cells seen [place] No yeast seen [facility] Micro Report FINAL [facility] Status 10/27/2011 [facility] Specimen Anatomical Collection Method Collection Time Receive d Time (Source) Location / / Volume Laterality 10/27/2011 7:57 AM 2 7:59 CDT AM CDT Tory Vlilagran MD LAB - MICRO GENERAL ORDERABL ES Performing Organization Address City/State/ZIP Code Phon e Number [facility] [id number] [place] [address] [address] [facility] Basic metabolic panel (10/27/2011 7:52 AM CDT) athologist Signature Sodium 141 133 - 144 [facility] [place] mmol/L [facility] Potassium 4.1 3.4 - 5.3 [facility] [place] mmol/L [facility] Chloride 104 94 - 109 [place] [place] mmol/L [facility] Carbon Dioxide 25 20 - 32 [facility] [place] mmol/L [facility] Anion Gap 12 6 - 17 [facility] [place] mmol/L [facility] Glucose 91 60 - 99 [place] mg/dL [facility] Urea Nitrogen 11 5 - 24 [facility] [place] mg/dL [facility] Creatinine 0.83 0.52 - [facility] 1.04 mg/dL [facility] GFR Estimate 82 >60 [facility] [place] mL/min/1.7 [facility] m2 GFR Estimate If >90 >60 [facility] [place] Black mL/min/1.7 [facility] m2 Calcium 8.9 8.5 - 10.4 [facility] [place] mg/dL [facility] Specimen Anatomical Collection Method Collection Time Receive d Time (Source) Location / / Volume Laterality Blood specimen 10/27/2011 7:52 AM 012 7:54 (specimen) CDT AM CDT Tory Villagran MD LAB - BLOOD ORDERABLES Performing Organization Address City/State/ZIP Code Phon e Number [facility] [address] [place] [address] [facility] CBC with platelets (10/27/2011 7:52 AM CDT) P athologist Signature WBC 6.7 4.0 - 11.0 [place] 10e9/L [facility] RBC Count 4.45 3.8 - 5.2 [place] 10e12/L [facility] Hemoglobin 14.0 11.7 - [place] 15.7 g/dL [facility] Hematocrit 38.8 35.0 - [place] 47.0 % [facility] MCV 87 78 - 100 [facility] MCH 31.5 26.5 - [place] 33.0 pg [facility] MCHC 36.1 31.5 - [place] 36.5 g/dL [facility] RDW 12.0 10.0 - [place] 15.0 % [facility] Platelet Count 224 150 - 450 [place] 10e9/L [facility] Specimen Anatomical Collection Method Collection Time Receive d Time (Source) Location / / Volume Laterality Blood specimen 10/27/2011 7:52 AM 012 7:54 (specimen) CDT AM CDT Tory Villagran MD LAB - BLOOD ORDERABLES Performing Organization Address City/[facility]/ZIP Code Phon e Number [facility] [id number] [place] [address] [address] [facility] PAP IMAGED THIN LAYER SCREEN (10/27/2011 7:52 AM CDT) Component Value Ref Test Analysis Performed At Patholo gist Range Method Time Signature PAP NIL COPATH Copath Report COPATH Patient Name: JIMMY PITT MR#: [id number] Specimen #: [id number] Collected: 10/27/2011 Received: 10/28/2011 Reported: 10/31/2011 15:10 Ordering Phy(s): TORY VILLAGRAN SPECIMEN/STAIN PROCESS: Pap imaged thin layer prep screening (Surepath, FocalPoint w ith guided screening) ? Pap-Cyto x 1, Reflex HPV x 1 SOURCE: Cervical, endocervical ---- Pap imaged thin layer prep screening (Surepath, FocalPoint with guided screening) SPECIMEN ADEQUACY: Satisfactory for evaluation. -Transformation zone component present. CYTOLOGIC INTERPRETATION: Negative for Intraepithelial Lesion or Malignancy Electronically signed out by: HAILEY Miller (ASCP) Processed and screened at [facility] CLINICAL HISTORY: LMP: 10/10/11 Papanicolaou Test Limitations: ??Cervical cytology is a scre ening test with limited sensitivity; regular screening is critical for cancer prevention; Pap tests are primarily effective for the diagnosis/prevention of squamous cell carcinoma, not adenoca rcinomas or other cancers. TESTING LAB LOCATION: [address] ??[id number] COLLECTION SITE: Client: ??[facility] Location: [facility] (R) Specimen (Source) Anatomical Collection Method Collection Time Re ceived Time Location / / Volume Laterality Cytologic 10/27/2011 7:52 10/28/2011 9 :55 material AM CDT AM CDT (specimen) Tory Villagran MD LAB - OPTIME CLINICAL SPECIM EN Performing Organization Address City/State/ZIP Code Phon e Number [place] (ABNORMAL) LIPID REFLEX TO DIRECT LDL PANEL (10/27/2011 7:52 AM CDT) athologist Signature Cholesterol 176 0 - 200 [facility] Comment: LDL Cholesterol is the primary guide to therapy. The NCEP recommends further evaluation of: patients with cholesterol greater than 200 mg/dL if additional risk facto rs are present, cholesterol greater than 240 mg/dL, triglycerides greater than 1 50 mg/dL, or HDL less than 40 mg/dL. Triglycerides 143 0 - 150 mg/dL [facility] HDL Cholesterol 40 (L) 50 - 110 mg/dL [facility] LDL Cholesterol Calculated 107 0 - 129 mg/dL [facility] Comment: LDL Cholesterol is the primary guide to therapy: LDL-cholesterol goal in high risk patients is <100 mg/dL and in very high risk patients is <70 mg/dL. VLDL-Cholesterol 29 0 - 30 mg/dL [facility] Cholesterol/HDL Ratio 4.3 0.0 - 5.0 [facility] Specimen Anatomical Collection Method Collection Time Receive d Time (Source) Location / / Volume Laterality Blood specimen 10/27/2011 7:52 AM 012 7:54 (specimen) CDT AM CDT Tory Villagran MD LAB - BLOOD ORDERABLES Performing Organization Address City/State/ZIP Code Phon e Number [address] [address] [facility] documented in this encounter Visit Diagnoses Diagnosis Routine general medical examination at a health care facility - Primary OZZIE (generalised anxiety disorder) Generalized anxiety disorder Mass, ovarian Unspecified noninflammatory disorder of ovary, fallopian tube, and broad ligament documented in this encounter Care Teams Gum Mixer Relationship Specialty Start Date End Date Tory Villagran MD PCP - General Family Practice 10/03/11 09/21/15 Tory Villagran MD Family Practice 10/03/11 09/21/15 documented as of this encounter
--- OUTSIDE RECORDS SUMMARY | 2022-03-04 20:36 | XMS_ITS | Encounter Summary ---
:1985 Author Organization [place] Address [facility] [place] [address] Care Team Providers Name Role Phone Deloris Teixeira MD Primary Care Provider [phone] Deloris Teixeira MD Unavailable [phone] Reason for Visit Reason Comments Anxiety Depression A.D.H.D Encounter Details Date Type Department Care Team Description 08/11/2011 Office Visit [facility] José Miguel George MD OZZIE (generalised anxiety disorder) (Prim deepthi Dx); Clinic [place] [address] ADD (attention deficit disorder with hyp eractivity) [place], [place] [address] [address] [place], [place] [phone] [address] (Work) [phone] Social History Tobacco Use Types Packs/Day Years Used Date Former Smoker Smokeless Tobacco: Former User Q uit: 05/03/2011 [...] Sign Reading Time Taken Comments Blood Pressure 122/80 08/11/2011 2:51 PM CDT Pulse 115 08/11/2011 2:51 PM CDT Temperature 36.7 ??C (98.1 ??F) 08/11/2011 2:51 PM CDT Respiratory Rate 16 08/11/2011 2:51 PM CDT Oxygen Saturation 99% 08/11/2011 2:51 PM CDT Inhaled Oxygen Concentration - - Weight 106.1 kg (234 lb) 08/11/2011 2:51 PM CDT Height 176.5 cm (5' 9.5) 08/11/2011 2:51 PM CDT Body Mass Index 34.06 08/11/2011 2:51 PM CDT documented in this encounter Progress Notes José Miguel George MD - 08/11/2011 3:19 PM CDT Deyanira Pitt is a 26 year old female who presents today for Follow up on her depression. HPI:has been dealing with anxiety for long time, has been started on celexa in the past, then went off of it, and now she took zoloft, and she felt more anxiety with zoloft. She called the nurse, and she stopped taking it. Symptoms includes : breathing fast, pt worry a lot, negative thinking, obsessing over things. Symptoms did not change after taking adderall, pt had ADD since [facility], and had it since she wasa child. Review Of Systems: CONSTITUTIONAL:NEGATIVE RESP: NEGATIVE CV: NEGATIVE Exam GENERAL healthy, alert and no distress HENT: Normocephalic. TM's grossly normal, oropharynx without significant findings. NECK: no adenopathy and no asymmetry, masses, or scars RESP: Clear to auscultation CV: RRR, no murmur. GI: no bruits heard, no masses palpable and no organomegaly MS: No varicosities. Good peripheral pulses., Extremities normal. No deformaties, edema or skin discoloration. NEURO: alert/oriented to person, location and time, CN 2-12 intact Assessment & Plan: 1)300.02F OZZIE (generalised anxiety disorder) (primary encounter diagnosis) Comment: restart celexa 10 mg daily. Plan: follow up in 2 to 3 weeks. 2) ADD : start on adderall regular 10 mg daily. The old prescription was disposed off in the clinic. José Miguel George MD. documented in this encounter Nursing Notes 08/11/2011 3:00 PM CDT >> EDWAR CHANDRAKANT Albertina Aug 11, 2011 2:53 PM Deyanira Pitt presents for XR causing some sleeping issue, was previously on non xr qd, concentration and over concentration issues with meds, just started celexa today questions about being on both. No LMP recorded. BP 122/80 Pulse 115 Temp(Src) 98.1 ??F (36.7 ??C) (Oral) Resp 16 Ht 5' 9.5 (1.765 m) Wt 234 lb (106.142 kg) BMI 34.06 kg/m2 SpO2 99% Estimated Body mass index is 34.06 kg/(m^2) as calculated from the following: Height as of this encounter: 5' 9.5(1.765 m). Weight as of this encounter: 234 lb(106.142 kg). TETANUS IMMUNIZATION ( [facility] ASSIGNED) due on 1995 PAP ANNUAL SCREENING ([facility] ASSIGNED) due on 02/02/2004 BP completed using cuff size: large. Patient is covered under this program for the following reason: Does not qualify Edwar Valencia MA documented in this encounter Plan of Treatment Not on filedocumented as of this encounter Visit Diagnoses Diagnosis OZZIE (generalised anxiety disorder) - Mariella cummins Generalized anxiety disorder ADD (attention deficit disorder with hyp eractivity) Attention deficit disorder with hyperact ivity documented in this encounter Care Teams Tire Spotter Relationship Specialty Start Date End Date Deloris Teixeira MD PCP - General 03/23/09 10/02/11 Deloris Teixeira MD 03/23/09 10/02/11 documented as of this encounter
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
--- OUTSIDE RECORDS SUMMARY | 2022-03-04 20:36 | XMS_ITS | Encounter Summary ---
:1985 Author Organization [facility] Address [address] [place] [address]. [place] [address] Care Team Providers Name Role Phone Deloris Teixeira MD Primary Care Provider [phone] Deloris Teixeira MD Unavailable [phone] Reason for Visit Reason Comments Depression Encounter Details Date Type Department Care Team Description 08/02/2011 Office Visit [facility] Kiran Cornelius OZZIE (gene ralised anxiety disorder) (Primary Dx); Clinic Mechelle Landin MD Screening for depression [place] [address] [facility], [address] [place], [place] [address] [place] [address] (Wo rk) [id number] [phone] Social History Tobacco Use Types Packs/Day Years [...] Sign Reading Time Taken Comments Blood Pressure 110/84 08/02/2011 11:00 AM HAIRSPRING SETTER Pulse 82 08/02/2011 11:00 AM HAIRSPRING SETTER Temperature 36.6 ??C (97.9 ??F) 08/02/2011 11:00 AM HAIRSPRING SETTER Respiratory Rate 16 08/02/2011 11:00 AM HAIRSPRING SETTER Oxygen Saturation 95% 08/02/2011 11:00 AM HAIRSPRING SETTER Inhaled Oxygen Concentration - - Weight 108.9 kg (240 lb) 08/02/2011 11:00 AM HAIRSPRING SETTER Height 177.2 cm (5' 9.75) 08/02/2011 11:00 AM HAIRSPRING SETTER Body Mass Index 34.68 08/02/2011 11:00 AM HAIRSPRING SETTER documented in this encounter Progress Notes Edwar Stallings - 08/02/2011 1:26 PM HAIRSPRING SETTER Addended by: EDWAR STALLINGS on: 08/02/2011 Modules accepted: Orders, SmartSet SPRING SETTER Kiran Cornelius MD - 08/02/2011 11:25 AM CST HPI Wants to restart citalopram. Feels that it work well for depression and some anxiety. Had been [id number]. Had been on 6m, tried going off but now feels like that she needs it again. Has been off now for 4m and is noticing more anger outburst, anger, depressed mood most days, spending binges. Symptomscan be consistent, last for months. Notes irritability and anger. NO periods where she doesn't need sleep. Has had anxiety attacks that can keep her from work or events. When taking 20mg of Celexa felt wired. Has done CBT in the past. Has been on Welbutrin, Celexa, Effexor, Review of Systems Constitutional: Negative. Neurological: Positive for headaches. Psychiatric/Behavioral: Positive for depression. The patient is nervous/anxious. The patient does not have insomnia. Physical Exam Vitals reviewed. Psychiatric: Her mood appears anxious. She has a flat affect. Sleep: fine Interests: doesn't have a lot . . . Guilt: yeah, sometimes Energy: not the greatest Concentration: (ADHD) I can Appetite: binges Psychomotor: somewhat flat Suicide: no PHQ-9 score: 7 Confirms excessive worry and rumination OZZIE 7: 20 300.02F OZZIE (generalised anxiety disorder) (primary encounter diagnosis) Comment: long discussion on types of medications - very concerned about sensitivity and side effects. Has had friend respond well with Zoloft and wants to try that first.. Plan: sertraline (ZOLOFT) 25 MG tablet Encouraged to pursue CBT RTC in 2w Kiran Cornelius MD SPRING SETTER documented in this encounter Nursing Notes 08/02/2011 11:00 AM CST >> EDWAR Luna Aug 02, 2011 11:02 AM Deyanira Pitt presents for previously on citalopram 10mg for about 6 months and then went off now for about 4 months. No LMP recorded. BP 110/84 Pulse 82 Temp(Src) 97.9 ??F (36.6 ??C) (Oral) Resp 16 Ht 5' 9.75 (1.772 m) Wt 240 lb (108.863 kg) BMI 34.68 kg/m2 SpO2 95% Estimated Body mass index is 34.68 kg/(m^2) as calculated from the following: Height as of this encounter: 5' 9.75(1.772 m). Weight as of this encounter: 240 lb(108.863 kg). TETANUS IMMUNIZATION ( [facility] ASSIGNED) due on 1995 PAP ANNUAL SCREENING ([facility] ASSIGNED) due on 02/02/2004 BP completed using cuff size: large. Patient is covered under this program for the following reason: Does not qualify Edwar Stallings MA documented in this encounter Plan of Treatment Not on filedocumented as of this encounter Visit Diagnoses Diagnosis OZZIE (generalised anxiety disorder) - [facility] Generalized anxiety disorder Screening for depression documented in this encounter Care Teams Natural Remedy Consultant Relationship Specialty Start Date End Date Deloris Teixeira MD PCP - General 03/23/09 10/02/11 Deloris Teixeira MD 03/23/09 10/02/11 documented as of this encounter
--- OUTSIDE RECORDS SUMMARY | 2022-03-04 20:36 | XMS_ITS | Encounter Summary ---
:1985 Author Organization [facility] Address [facility] [facility] [place] [address] Care Team Providers Name Role Phone Kiran Cornelius MD Primary Care Provider [phone] Kiran Cornelius MD Unavailable Reason for Visit Reason Onset Date Comments Patient/info Update 01/03/2012 on med's Encounter Details Date Type Department Care Team Description 01/03/2012 Telephone [facility] Kiran Cornelius Patient/i nfo Update Clinic [facility] MD Mushtaq (on med's) [address] [place] [address] 5 5068 [id number] [phone] Social History Tobacco Use Types Packs/Day Years [...] Notes Telephone Encounter - Stefani Garza - 01/03/2012 10:44 AM CDT Patient calling to update medication list. Stopped Metformin, Adderall and clonazepam. She would like to give the guanFACINE (INTUNIV) 1 MG TB24 Take 1 tablet by mouth At Bedtime another try. Updated medication list. Routed to Dr. Cornelius as LAINE. Stefani Garza, RN Message Handled by Nurse Triage documented in this encounter Plan of Treatment Not on filedocumented as of this encounter Visit Diagnoses Diagnosis ADHD (attention deficit hyperactivity di sorder) - Primary Attention deficit disorder with hyperact ivity documented in this encounter Care Teams Bulwark Carpenter Relationship Specialty Start Date End Date Kiran Cornelius MD PCP - General Family Practice 10/03/11 09/21/15 Kiran Cornelius MD Family Practice 10/03/11 09/21/15 documented as of this encounter
--- OUTSIDE RECORDS SUMMARY | 2022-03-04 20:36 | XMS_ITS | Clinical Summary ---
:1985 Author Organization [facility] [place] [address] Care Team Providers Name Role Phone Kathleen Aguilar NP Primary Care Provider [phone] Allergies Active Allergy Reactions Severity Noted Date Comments Prednisone Emotional Disturbance 07/23/2018 Bupropion Rash 06/02/2011 Face and neck Medications Medication Sig Dispensed Refills Start Date End Date Status albuterol HFA (PROAIR Inhale 2 Puffs 1 Inhaler 2 05/19/2015 Active HFA) 90 mcg/actuation by mouth 4 times inhalerIndications: RAD daily if needed. (reactive airway disease), unspecified asthma severity, uncomplicated citalopram (CELEXA) 20 Take 20 mg by 0 11/03/2020 Active mg tablet mouth once daily. dextroamphetamine-amphe Take 1 Capsule 30 Capsule 0 02/08/2021 Active tamine (Adderall XR) 10 (10 mg) by mouth mg Extended-Release once daily. capsuleIndications: Attention deficit hyperactivity disorder (ADHD), combined type Active Problems Problem Noted Date Generalized anxiety disorder 12/10/2020 Controlled substance agreement signed 01/05/2016 Overview: Date Signed: 11/13/2019 Physician: Kathleen Aguilar NP Medication: Ritalin 10 mg Quantity per month: #30 Pharmacy: [facility] Last Toxasure: None on file Obesity (BMI 30-39.9) 12/16/2013 PMDD (premenstrual dysphoric disorder) 08/29/2013 Social phobia 07/30/2011 Overview: July 2011: trial of propranolol at [place] ent request. Adjustment disorder with mixed anxiety and depressed m ood 11/25/2010 Major depressive disorder, recurrent episode, unspecif ied 12/10/2007 Attention deficit disorder with hyperactivity 08/14/19 08 Overview: At 15 yo diagnosed with ATTENTION DEFICI T HYPERACTIVITY DISORDER concerta didn't help adderall did help but side effects with that Sensitive to medication wellbutrin helped on 300 mg doctor notic ed facial tics so stopped, although this one worked the best. Interested in non-stimulant 10/04/10- Try to start strattera- if not c overed, short acting stimulant to help reduce sleeping side effects July 2012: restart adderall XR: several side effects, so stopped Adderall XR. July 2012: trial of guanfacine (Immedia te Release) 1mg nightly. Benign neoplasm of skin, site unspecified 11/07/2005 Resolved Problems Problem Noted Date Resolved Date ISSUE OF REPEAT PRESCRIPTIONS, 07/200708/14/2007 Immunizations Name Administration Dates Next Due COVID-19 vaccine ([employer] 30mcg/0.3mL) PF, 1, 08/25/2020 MDV Influenza, IIV3 (Age >=3 years) 03/21/2011 Tdap 07/29/2015 Family History Patient is adopted Medical History Relation Name Comments Diabetes Maternal Grandfather Relation Name Status Comments Maternal Grandfather Social History Tobacco Use Types Packs/Day Years Used Date Former Smoker Quit: 04/21/20 15 Smokeless Tobacco: Never Used Tobacco Cessation: Counseling Given: Yes Comments: 1-2 here and there Alcohol Use Standard Drinks/Week Comments Not Currently 0.8 (1 standard drink = 0.6 oz pure alco hol) occ. Alcohol Habits Answer Date Recorded How often do you have a drink containing alcohol? Not asked How many drinks containing alcohol do you have on a typical Not asked day when you are drinking? How often do you have six or more drinks on one occasion? No t asked Comment: occ. 09/12/2007 Sex Assigned at Date Recorded Not on file Obstetrics History Last Filed Vital Signs Vital Sign Reading Time Taken Comments Blood Pressure 120/88 12/10/2020 1:15 PM CDT Pulse 90 12/10/2020 1:15 PM CDT Temperature 36.5 ??C (97.7 ??F) 07/22/2018 4:10 PM MEDICAL BILL PROCESSOR Respiratory Rate 20 07/22/2018 4:10 PM MEDICAL BILL PROCESSOR Oxygen Saturation 98% 07/22/2018 4:10 PM MEDICAL BILL PROCESSOR Inhaled Oxygen Concentration - - Weight 113.9 kg (251 lb) 12/10/2020 1:15 PM CDT Height 175.3 cm (5' 9) 12/10/2020 1:15 PM CDT Body Mass Index 37.07 12/10/2020 1:15 PM CDT Plan of Treatment Health Maintenance Due Date Last Done Comments Hepatitis C screening for age 0902/01/2001 18-79 Pap test for age 21-65 06/01/2020 06/01/2017, 06/01/2017, 12/27/2011 (Completed outside of [facility]), Additional history exists COVID-19 vaccine series (3 - 02/15/2021 09/15/2020, 021 Booster for Pfizer series) BMI (ht and wt on same day) for 12/10/2021 12/10/2020, 05/0 01/2017, age 18+ 02/24/2016, Additional history exists Depression screening for age 12+ 12/10/2021 12/10/2020, , 10/15/2019, Additional history exists Influenza for age 9-49 01/27/2022 03/21/2011 Tetanus booster 07/28/2025 07/29/2015, 12/25/2009 (Completed outside of [facility]) Tdap Completed 07/29/2015 Results Not on filefrom Last 3 Months Insurance Payer Benefit Plan / Subscriber ID Effective Dates Phone Addre ss Type Group [employer] [id number] 2016-Present [address] [place] [address] Care Teams Microelectronics Engineer Relationship Specialty Start Date End Date Kathleen Aguilar, SPORTS MANAGEMENT INTERN PCP - General Nurse Practitioner 11/13/19 [id number] [place] [address]
--- OUTSIDE RECORDS SUMMARY | 2022-03-04 20:36 | XMS_ITS | Encounter Summary ---
:1985 Author Organization [facility] Address [address] [place] [address]. [place] [address] Care Team Providers Name Role Phone Kiran Cornelius MD Primary Care Provider [phone] Kiran Cornelius MD Unavailable Reason for Visit Reason Onset Date Comments Medication Request 11/29/2011 would like to go lesvia k on Klonopin Encounter Details Date Type Department Care Team Description 11/29/2011 Telephone [facility] Kiran Cornelius Medicatio n Request Clinic Mechelle Landin MD (would like to go back [address] [facility], [address] [place] [address] on Klonopin) [address] [place] [address] [place], [place] [phone] (Wo rk) [phone] [phone] Social History Tobacco Use Types Packs/Day Years [...] this encounter Miscellaneous Notes Telephone Encounter - Points, Iris - 11/29/2011 3:06 PM CDT RX at front desk officer for pt to p/u. Iris Mallory RN Telephone Encounter - Iris Mallory - 11/29/2011 2:48 PM CDT Pt notified, will p/u today. Iris Mallory RN Telephone Encounter - Kiran Cornelius MD - 11/29/2011 2:45 PM CDT I don't think it's ideal, but I'm willing to give it a try . . . Rx printed. Kiran Cornelius MD Telephone Encounter - Iris Mallory - 11/29/2011 1:42 PM CDT Pt calling, states she has been on Adderall for about 2 weeks and it is making her more anxious. Would like to go back on Klonopin if you would approve that. Please advise. Iris Mallory RN documented in this encounter Plan of Treatment Not on filedocumented as of this encounter Visit Diagnoses Diagnosis OZZIE (generalised anxiety disorder) - Mariella placido Generalized anxiety disorder documented in this encounter Care Teams Middle School Coach Relationship Specialty Start Date End Date Kiran Cornelius MD PCP - General Family Practice 10/03/11 09/21/15 Kiran Cornelius MD Family Practice 10/03/11 09/21/15 documented as of this encounter
--- OUTSIDE RECORDS SUMMARY | 2022-03-04 20:36 | XMS_ITS | Encounter Summary ---
:1985 Author Organization [facility] Address [address] [place] [address]. [place] [address] Care Team Providers Name Role Phone Kiran Cornelius MD Primary Care Provider [phone] Gricel Lara MD Primary Care Provider Kiran Cornelius MD Unavailable Gricel Lara MD Unavailable No Ref-Primary, Physician Primary Care Provider [phone] Reason for Visit Reason Onset Date Comments Refill Request 12/26/2011 Maria Esther Encounter Details Date Type Department Care Team Description 12/26/2011 MyC Refill [facility] Kiran Cornelius [facility] Mechelle Landin MD (Maria Esther) [address] [place] [address] [place], [place] [phone] (Wo rk) [address] [phone] Social History Tobacco Use Types Packs/Day Years [...] Notes Telephone Encounter - Nirali Parekh - 12/27/2011 7:56 AM CDT Message from [employer]: Original authorizing provider: Kiran Cornelius MD Deyanira Pitt would like a refill of the following medications: clonazePAM (KLONOPIN) 0.5 MG tablet [Kiran Cornelius MD] Preferred pharmacy: [facility] Comment: I was wondering if i could get 60 pills for a whole month instead of 30 for 2 weeks. Also i was wondering if i could get a little bit of a higher dose.THank you documented in this encounter Plan of Treatment Not on filedocumented as of this encounter Visit Diagnoses Diagnosis OZZIE (generalised anxiety disorder) - Mariella placido Generalized anxiety disorder documented in this encounter Care Teams Dairy Cattle Farmer Relationship Specialty Start Date End Date Kiran Cornelius MD PCP - General Family Practice 10/03/11 09/21/15 Gricel Lara MD PCP - General Family Practice 09/22/15 06/06/20 [facility] [id number] [place] [id number] No Ref-Primary, Physician PCP - General 06/07/20 Kiran Cornelius MD Family Practice 10/03/11 09/21/15 Gricel Lara MD Family Practice 09/22/15 [facility] [address] [place] [address] documented as of this encounter
--- OUTSIDE RECORDS SUMMARY | 2022-03-04 20:36 | XMS_ITS | Encounter Summary ---
:1985 Author Organization [facility] Address [address] [place] [address]. [place] [address] Care Team Providers Name Role Phone Deloris Teixeira MD Primary Care Provider [phone] Deloris Teixeira MD Unavailable [phone] Reason for Visit Reason Comments Anxiety concerned about anger aoutbu rsts and feeling anxious stopped ADD meds because they caused physical symptom s and more anxiety incresed heart rate. Feeling on edge worse around time of periods. Current med is helping some Encounter Details Date Type Department Care Team Description 08/25/2011 Office Visit [facility] Kiran Cornelius Screening for depression (Primary Dx); Clinic Mechelle Landin MD OZZIE (generalised anxiety disorder) [address] [address] [facility], [address] [phone] (Wo rk) [address] [phone] Social History Tobacco Use Types Packs/Day Years [...] Sign Reading Time Taken Comments Blood Pressure 128/82 08/25/2011 11:54 AM CDT Pulse 107 08/25/2011 11:54 AM CDT Temperature 36.5 ??C (97.7 ??F) 08/25/2011 11:54 AM CDT Respiratory Rate 18 08/25/2011 11:54 AM CDT Oxygen Saturation 98% 08/25/2011 11:54 AM CDT Inhaled Oxygen Concentration - - Weight - - Height - - Body Mass Index - - documented in this encounter Progress Notes Kiran Cornelius MD - 08/25/2011 11:45 AM CDT HPI Has been working to control symptoms of anxiety for about last 4-6 w. Also has been taking treatmentfor ADHD. Current meds only citalopram. Feels that she does have ADD - was diagnosed in late teens. Symptoms of ADD improved immediately with use of Adderall, but anxiety symptoms got worse. Now big concerns is moodiness, notes worse week before period is distinctly worse. 10mg of Celexa seems to help a bit, but 20mg seems to make her feel too wired. Review of Systems Constitutional: Negative. Neurological: Negative for headaches. Psychiatric/Behavioral: Negative for depression and suicidal ideas. The patient is nervous/anxious. The patient does not have insomnia. Physical Exam Vitals reviewed. Constitutional: She is well-developed, well-nourished, and in no distress. Psychiatric: Memory and judgment normal. Her mood appears anxious. She is agitated. She does not exhibit a depressed mood. She expresses no suicidal ideation. She expresses no suicidal plans. OZZIE 7: 18 PHQ 9: 10 V79.0 Screening for depression (primary encounter diagnosis) Comment: Plan: PHQ-9 DEPRESSION SCREENING ORDER, GENERAL ANXIETY DISORDER QUESTIONNAIRE (OZZIE) 300.02F OZZIE (generalised anxiety disorder) Comment: will switch to a med a little more deactivating. Plan is to hold off on worrying about ADD until anxiety (+/- PMDD) is under better control, danielle as SNRIs may be helpful in dealing with ADD sx. Plan: DULoxetine (CYMBALTA) 20 MG capsule RTC in 1m Kiran Cornelius MD documented in this encounter Nursing Notes 08/25/2011 11:15 AM CDT >> YOLANDA GOOD Albertina Aug 25, 2011 11:25 AM Patient presents with: Anxiety - concerned about anger aoutbursts and feeling anxious stopped ADD meds because they causedphysical symptoms and more anxiety incresed heart rate. Feeling on edge worse around time of periods. Current med is helping some Initial There were no vitals taken for this visit.BMIHIS@ BP completed using cuff size regular. Yolanda Good, Tig Welder documented in this encounter Plan of Treatment Not on filedocumented as of this encounter Visit Diagnoses Diagnosis Screening for depression - Primary OZZIE (generalised anxiety disorder) Generalized anxiety disorder documented in this encounter Care Teams Shearer Helper Relationship Specialty Start Date End Date Deloris Teixeira MD PCP - General 03/23/09 10/02/11 Deloris Teixeira MD 03/23/09 10/02/11 documented as of this encounter
--- OUTSIDE RECORDS SUMMARY | 2022-03-04 20:36 | XMS_ITS | Encounter Summary ---
:1985 Author Organization [facility] Address [address] [place] [address]. [place] [address] Care Team Providers Name Role Phone Kiran Cornelius MD Primary Care Provider [phone] Kiran Cornelius MD Unavailable Reason for Visit Reason Onset Date Comments Medication Question 11/14/2011 Glucophage Encounter Details Date Type Department Care Team Description 11/14/2011 Telephone [facility] Kiran Cornelius Medicatio n Question Clinic Mechelle Landin MD (Glucophage) [address] [place] [address] [place], [place] [phone] (Wo rk) [phone] [phone] Social History Tobacco Use Types Packs/Day Years [...] Notes Telephone Encounter - Nirali Parekh - 11/14/2011 10:28 AM CDT Pt notified. Nirali Parekh RN Telephone Encounter - Kiran Cornelius MD - 11/14/2011 10:00 AM CDT Best if taken twice a day. Diarrhea is very common, it often improves after a couple of weeks. Taking with a meal should also help. If it doesn't get any better there is a long-acting formulation that can be better tolerated. Kiran Cornelius MD Telephone Encounter - Nirali Parekh - 11/14/2011 9:31 AM CDT Pt calling wondering instead of taking her Glucophage twice a day if she could just take it both tablets at night. She seems to be having a lot of diarrhea during the day. Please advise. Nirali Parekh RN documented in this encounter Plan of Treatment Not on filedocumented as of this encounter Visit Diagnoses Not on filedocumented in this encounter Care Teams Kindergarten Prep Teacher Relationship Specialty Start Date End Date Kiran Cornelius MD PCP - General Family Practice 10/03/11 09/21/15 Kiran Cornelius MD Family Practice 10/03/11 09/21/15 documented as of this encounter
--- OUTSIDE RECORDS SUMMARY | 2022-03-04 20:36 | XMS_ITS | Encounter Summary ---
:1985 Author Organization [facility] Address [address] [address]. [place] [address] Care Team Providers Name Role Phone Deloris Teixeira MD Primary Care Provider [phone] Deloris Teixeira MD Unavailable [phone] Encounter Details Date Type Department Care Team Description 09/02/2011 Telephone [facility] Kiran Cornelius MD [place] [id number] [facility] [address] [place] [address] [phone] Social History Tobacco Use Types Packs/Day Years [...] this encounter Miscellaneous Notes Telephone Encounter - Kiran Cornelius MD - 09/05/2011 7:05 AM CDT Response via [employer]. Telephone Encounter - May Miller - 09/02/2011 11:53 AM CDT Pt calling for update on cymbalta, started 2nd tablet 3 days ago and all is going well. Is happy about the SE of feeling a little tired. Has had one SE of dull lower R abd pain. Lasted 3 days when she first started on the one tablet and returned when she upped it to 2 tabs. Is getting better now. Advised her to call back on Monday if it hasn't resolved or was getting worse. Pt wondering when you would like her to F/U. She thought she could do another phone in update in a cple mos, or would you prefer to see her in office. Notes said to RTC in a month but she thought the phone option was better. Canlet her know via phone or Revstrhart on Monday. Thanks. May Miller RN documented in this encounter Plan of Treatment Not on filedocumented as of this encounter Visit Diagnoses Not on filedocumented in this encounter Care Teams Operations Support Analyst Relationship Specialty Start Date End Date Deloris Teixeira MD PCP - General 03/23/09 10/02/11 Deloris Teixeira MD 03/23/09 10/02/11 documented as of this encounter
--- OUTSIDE RECORDS SUMMARY | 2022-03-04 20:36 | XMS_ITS | Encounter Summary ---
:1985 Author Organization [facility] Address [address] [place] [address]. [place] [address] Care Team Providers Name Role Phone Deloris Teixeira MD Primary Care Provider Deloris Teixeira MD Unavailable [phone] Reason for Visit Reason Onset Date Comments Medication Problem 08/09/2011 Zoloft 25mg Encounter Details Date Type Department Care Team Description [facility] Mechelle Landin MD (Zoloft 25mg) [address] [place] [address] [place], [place] [phone] (Wo rk) [phone] [phone] Social History Tobacco Use Types Packs/Day Years [...] Notes Telephone Encounter - Nirali Parekh - 08/11/2011 11:23 AM CDT Spoke with patient. She stopped taking the Zoloft and started taking Citalopram 10mg (rx she had left over) just today. She was on this in the past and did well with it before. She is also taking Adderall XR 10mg daily x 4 months through another provider. She has a follow up appointment with Dr. George today at 3:00pm. Nirali Parekh RN Telephone Encounter - Nirali Parekh - 08/10/2011 10:29 AM CDT LMOM for patient to call clinic back. Nirali Parekh RN Telephone Encounter - Kathryn Colbert MD - 08/10/2011 9:58 AM CDT Faxed paxil instead, ok to stop the zoloft. May need to raise the paxil to 25mg after a few weeks Telephone Encounter - Nirali Parekh - 08/09/2011 2:41 PM CDT Pt calling stating she started on Zoloft 25mg x 1 week ago and feels like her anxiety has increased and she feels more depressed. She is taking her medication in the morning with food. She also has noticed some insomnia since starting the medication. Pt has an appointment with Dr. Cornelius 08/23/2011, but wondering what she should do until then. Please advise. Nirali Parekh RN documented in this encounter Plan of Treatment Not on filedocumented as of this encounter Visit Diagnoses Diagnosis OZZIE (generalised anxiety disorder) - Mariella cumimns Generalized anxiety disorder documented in this encounter Care Teams Manager Hardware Relationship Specialty Start Date End Date Deloris Teixeira MD PCP - General 03/23/09 10/02/11 Deloris Teixeira MD 03/23/09 10/02/11 documented as of this encounter
--- OUTSIDE RECORDS SUMMARY | 2022-03-04 20:36 | XMS_ITS | Encounter Summary ---
:1985 Author Organization [facility] Address [address] [place] [address]. [place] [address] Care Team Providers Name Role Phone Kiran Cornelius MD Primary Care Provider [phone] Kiran Cornelius MD Unavailable Reason for Visit Reason Onset Date Comments Refill Request 12/11/2011 clonazepam Encounter Details Date Type Department Care Team Description 12/11/2011 MyC Refill [facility] Kiran Cornelius [facility] Mechelle Landin MD (clonazepam) [address] [place] [address] [place], [place] [phone] (Wo rk) [address] [phone] Social History Tobacco Use Types Packs/Day Years [...] Notes Telephone Encounter - Stefani Garza - 12/12/2011 8:41 AM CDT Please see [facility] message 12/11/11- refill addressed in that message. Stefani Garza, RN Message Handled by Nurse Triage Telephone Encounter - Stefani Garza - 12/12/2011 8:40 AM CDT Message from [facility]: Original authorizing provider: Kiran Cornelius MD Deyanira Pitt would like a refill of the following medications: clonazePAM (KLONOPIN) 0.5 MG tablet [Kiran Cornelius MD] Preferred pharmacy: [facility] Comment: i will not need a refill on this medication untill 12/29/2011 . but i was wondering if i could get 1 mg. 2x a day? the .05 just seems to be not quite enough sometimes. i know you were worried about dosecreep but I am usually pretty good about taking med breaks when i need them. documented in this encounter Plan of Treatment Not on filedocumented as of this encounter Visit Diagnoses Diagnosis OZZIE (generalised anxiety disorder) - Mariella placido Generalized anxiety disorder documented in this encounter Care Teams Dial Painter Relationship Specialty Start Date End Date Kiran Cornelius MD PCP - General Family Practice 10/03/11 09/21/15 Kiran Cornelius MD Family Practice 10/03/11 09/21/15 documented as of this encounter
--- OUTSIDE RECORDS SUMMARY | 2022-03-04 20:36 | XMS_ITS | Encounter Summary ---
:1985 Author Organization [facility] Address [address] [place] [address]. [place] [address] Care Team Providers Name Role Phone Kiran Cornelius MD Primary Care Provider [phone] Kiran Cornelius MD Unavailable Reason for Visit Reason Comments Ultrasound Encounter Details Date Type Department Care Team Description 11/01/[address] [facility] Women's Ma ss, ovarian (Primary Dx) Clinic [place] [address] [place] [address] Social History Tobacco Use Types Packs/Day Years [...] Name Priority Date/Time Associated Diagnosis Comme nts US PELVIC TRANSABDOMINAL Routine 11/01/2011 Mass, ovarian Re sults for this AND TRANSVAGINAL procedure a re in the results section. documented in this encounter Results (ABNORMAL) US Pel W/Trans* (11/01/2011) Anatomical Region Laterality Modality Abdomen/Pelvis Other Impressions 11/01/2011 Complete pelvic ultrasound utilizing both abdominal and vaginal transducers. Moderate size myoma, not ?? affecting cavity of uterus. Small , simple, left ovarian cys tFareed BENSON M.D. Narrative 11/01/2011 [facility] [address] [place] [address] ULTRASOUND - PELVIC PATROL JUDGE Referring MD: Kiran Cornelius Primary Clinic: [facility] Ultrasound disk#: [id number] CLINICAL INFORMATION Indications for ultrasound: R/o adnexal mass LMP: 10 Oct 2011 ?Hormones: OCP's Measurements: Uterus: 10.0 x 4.5 x 5.5 cm. ?? Position is anteverted. ??Contour is irr eg w myomata: 1) left mid 3.7 x 3.6 cm. Endo cav: 5.3 mm ? Smooth/regular/wn l Cervix: Wnl Right ovary: 2.9 x 2.0 x 2.3 cm. ?? Wnl Left ovary: 3.8 x 3.4 x 3.3 cm. Simple c yst 3.2 x 2.4 x 2.4cm Cul de sac: no free fluid Kiran Cornelius MD IMG US ORDERABLES documented in this encounter Visit Diagnoses Diagnosis Mass, ovarian - Primary Unspecified noninflammatory disorder of ovary, fallopian tube, and broad ligament documented in this encounter Care Teams Emission Specialist Relationship Specialty Start Date End Date Kiran Cornelius MD PCP - General Family Practice 10/03/11 09/21/15 Kiran Cornelius MD Family Practice 10/03/11 09/21/15 documented as of this encounter
[2022-03-04 20:47] VITALS: BP 125/78; PULSE 78; RESP 20; TEMP 36.9; O2SAT 99
[2022-03-04 20:48] VITALS: BP 125/78; PULSE 78; RESP 20; TEMP 36.9
[2022-03-04 20:56] LABS: SARS PCR* POSITIVE SARS-CoV-2 (Negative)
== END 2022-03-04 20:49 | disposition home or self-care (01) ==
PROVIDERS: Emergency Provider Internal Medicine
DX: R05.9 Cough, unspecified (principal)
CPT/HCPCS: 71045; 87635; 99283